=== PATIENT | female | born 1965 | race Caucasian/White ===

== ENCOUNTER 2021-12-17 08:19 | Outpatient (RCR) | payer OTHER, SELFPAY ==
--- NOTE | 2021-12-10 08:30 | CRLHL7_ITS ---
For Patients: As a result of the Century Cures Act, medical imaging exams and procedure reports are released immediately into your electronic medical record. You may view this report before your referring provider. If you have questions, please contact your health care provider. [facility] MYOCARDIAL PERFUSION SCAN CLINICAL HISTORY: 56-year-old female. Chest pain. Hypertension. 5 feet 4 inches, 256 pounds. TECHNIQUE: (Resting SPECT and Stress Gated SPECT with wall motion and ejection fraction) Stress: Pharmacologic ??? Lexiscan (0.4 mg) (IV) Dose (Stress/Rest): 40.7 mCi/39.7 mCi Tc-99m Sestamibi (IV) Comparison: None FINDINGS: There is good uptake of activity by the left ventricle. No left ventricular enlargement is noted. There is soft tissue attenuation. No other significant fixed or reversible defects are identified. The gated images demonstrate a normal left ventricular ejection fraction of approximately 65 percent. No regional wall motion abnormalities are identified. IMPRESSION: 1. There is no evidence of significant myocardial ischemia or infarction. 2. Normal left ventricular ejection fraction of approximately 65 percent. Amilcar Blank M.D. Diagnostic/Nuclear Medicine Radiologist [email or web address] Transcribed: 12:22 pm DW/Dictated by: Amilcar Blank MD @ 12/17/2021 11:15:00 AM DW/Dictated by: Amilcar Blank MD @ 12/17/2021 11:15:00 AM (Electronically Signed)
[2021-12-17] MEDS: SODIUM CHLORIDE 0.9 % (FLUSH) 10 ML SYRINGE IVF (09:22)
[2021-12-17] MEDS: REGADENOSON 0.4 MG/5 ML SYRINGE IVP (09:22)
--- NOTE | 2021-12-17 10:22 | PM.ST ---
Stress Test Note Date Date Seen: 12/17/21 Date of test: 12/17/21 Providers Referring provider: Francie Sharpe Primary care provider: Francie Sharpe Stress test physician: Jaxon Reyes Stress Test Note Stress test ordered: Lexiscan Indication for test: Chest pain Stress test medicine: Lexiscan Results discussion: Patient is a very nice 56-year-old female who presents for the above test after reviewing the cardiac stress test medical history form. She would like to proceed after the risks benefits and side effects are explained to her. Pretest EKG shows normal sinus rhythm with a ventricular rate of 65, there is some mild ST wave flattening noted laterally and inferiorly. And a Q-wave noted in lead 3. Blood pressure is 142/82. Standard Lexiscan protocol done sitting with infusion over 5 minutes. Maximum heart rate was 100 beats per minute, her maximum blood pressure was 154/91. She had some very slight nausea but otherwise was asymptomatic. There is no dysrhythmias noted. She had no EKG changes on the tracing. Impression: Negative subjective Lexiscan, electrographic bili negative Follow up suggested: Await nuclear imaging report, this will be jointly read by nuclear Medicine and Cardiology. Clinical correlation with this will be needed. Patient was back to baseline on finishing test, left this testing facility in excellent condition
--- NOTE | 2021-12-17 16:31 | PM.ST ---
Stress Test Note Date Date Seen: 12/17/21 Date of test: 12/17/21 Providers Referring provider: Francie Sharpe Primary care provider: Tricia Montiel Stress test physician: Jaxon Reyes Stress Test Note Stress test ordered: Stress Echo Indication for test: chest pain Stress test medicine: Definity Results discussion: Patient is a erinn 72-year-old female presents for the above test after discussion the risks benefits and side effects and reviewing of the cardiac stress test medical history form she would like to proceed pretest EKG shows normal sinus rhythm with a ventricular rate of 60. A blood pressure 124 and 75. Standard Franco protocol is employed over a time course of 7 minutes 2 seconds and achieved a metabolic equivalent of 8.5 Mets maximum heart rate was 129. Test is terminated because of fulfillment of protocol. He had some mild fatigue but no chest pain or shortness of breath. There is no specific ST wave changes suggestive of ischemia there is no dysrhythmias noted. He recovered normally in the recovery. Impression: Negative electrographic portion of stress echo Follow up suggested: Follow-up with primary care physician cardiology will review the images, clinical correlation with these will be needed patient left this testing facility in excellent condition
== END 2022-04-02 23:59 | disposition home or self-care (01) ==
LOC: STRESS 08:19
PROVIDERS: PCP Family Medicine; Visit Provider Family Medicine
DX: I95.9 Hypotension, unspecified (principal)
CPT/HCPCS: 78452; 93016; 93017; A9500; J2785

== ENCOUNTER 2021-12-18 07:57 | Outpatient (CLI) | payer OTHER, SELFPAY ==
[2021-12-23 17:56] LABS: Hours Collected 24 hr; Total Volume 2050 mL; Urine Supersaturation Interp Normal; pH, Urine 6.09 (5.00-7.50)
--- OUTSIDE RECORDS SUMMARY | 2022-01-07 18:23 | XMS_ITS | Encounter Summary ---
:1965 Author Organization [facility] Address [address] [place] [address] Care Team Providers Name Role Phone Unavailable Primary Care Provider Unavailable Encounter Details Date Type Department Care Team Description 01/08/2021 Clinical Communication Division of Nephrology Abhinav Tian, and Hypertension in Harry Cardoso, [place], [place] Ph.D. [address] [facility] [address] [place] [phone] 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 Tobacco Use Types Packs/Day Years Used Date Smoking Tobacco: Never Assessed Sex Assigned at Date Recorded Not on file documented as of this encounter Miscellaneous Notes Telephone Encounter - Janae Zuniga M.D., Ph.D. - 01/08/2021 1:25 PM CDT I have reviewed 24 hr urine collection done at [facility]. Her oxalate level in urine is high. I have recommended her to follow a low oxalate diet. I will send a booklet with this information to her home. All questions answered Reena Tian M.D., Ph.D. documented in this encounter Plan of Treatment Not on filedocumented as of this encounter Visit Diagnoses Not on filedocumented in this encounter
--- OUTSIDE RECORDS SUMMARY | 2022-01-07 18:23 | XMS_ITS | Encounter Summary ---
:1965 Author Organization [facility] Address [address] [place] [address] Care Team Providers Name Role Phone Unavailable Primary Care Provider Unavailable Reason for Visit Reason Onset Date Comments Testing For Upper Respiratory Virus Symptoms 06/28/2021 Encounter Details Date Type Department Care Team Description 06/28/2021 External Outreach Department of [facility] Daria Bowens Contact With And (Suspected) Exposure To COVID-19; Medicine, [place] [facility] Infection [facility], in [address] [address] [place], [place] [phone] (Work) [phone] 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 Tobacco Use Types Packs/Day Years Used Date Smoking Tobacco: Never Assessed Sex Assigned at Date Recorded Not on file documented as of this encounter Progress Notes Neena Huerta RNahed. - 06/28/2021 10:05 AM CST Encounter created for symptomatic infectious disease screening with possible COVID, Influenza, RSV, and/or Group A Strep testing. NESS SOLUTIONS CONSULTANT documented in this encounter Plan of Treatment Not on filedocumented as of this encounter Procedures Procedure Name Priority Date/Time Associated Diagnosis Comme nts INFLUENZA A/B AND Routine 06/28/2021 10:52 AM Infection Upper Results for this RSV, PCR, VARIES BUSINESS SOLUTIONS CONSULTANT Respiratory procedure a re in the results section. SARS CORONAVIRUS-2 Routine 06/28/2021 10:52 AM Contact With An d Results for this RNA, V BUSINESS SOLUTIONS CONSULTANT (Suspected) Exposure procedu re are in To COVID-19 the results section. documented in this encounter Results Influenza A/B and RSV, PCR, Varies (06/28/2021 10:52 AM BUSINESS SOLUTIONS CONSULTANT) [facility] Method Time Signature Influenza A/B Swab, 06/29/2021 DTL and RSV, Nasopharynx 6:24 AM BUSINESS SOLUTIONS CONSULTANT Source Influenza A, Undetected Undetected 06/29/2021 DTL PCR 6:24 AM BUSINESS SOLUTIONS CONSULTANT Comment: Influenza A RNA absent. Influenza B, PCR Undetected Undetected 06/29/2021 6:24 AM CS T DTL Comment: Influenza B RNA absent. Respiratory Syncytial Virus, PCR Undetected Undetected 6:24 AM BUSINESS SOLUTIONS CONSULTANT DTL Comment: RSV RNA absent. ----ADDITIONAL INFORMATION---- This test has been modified from the scio ifrahr's instructions. Its performance characteristics were determi soy by [facility] in a manner consistent with CLIA requirements. This test has not been cleared or approved by the U.S. Food and Drug Administration . Specimen Anatomical Collection Method Collection Time Receive d Time (Source) Location / / Volume Laterality Varies 06/28/2021 10:52 06/28/2021 (Nasopharynx) AM BUSINESS SOLUTIONS CONSULTANT 10:18 PM BUSINESS SOLUTIONS CONSULTANT Jayden Bowens P.A.-C. LAB MICROBIOLOGY - GENERAL O RDERABLES Performing Organization Address City/State/ZIP Code Phon e Number [facility] - [address] [place] [address] 559 [address] [facility] [place] [address] Laboratories-[facility] [address] [facility] SARS Coronavirus-2 RNA, V Symptomatic (06/28/2021 10:52 AM BUSINESS SOLUTIONS CONSULTANT) [facility] Method Time Signature SARS-CoV-2 Swab, 06/28/2021 ECLR Specimen Nasopharynx 7:33 PM BUSINESS SOLUTIONS CONSULTANT Source SARS CoV-2 Undetected Undetected 06/28/2021 ECLR RNA, TMA 7:33 PM BUSINESS SOLUTIONS CONSULTANT Comment: SARS-CoV-2 RNA absent. This result does not rule out COVID-19 in the patient, as the sensitivity of the test depends o n the timing of the specimen collection and the quality of the specim en. Result should be correlated with patient's history and clinical presentat ion. ----ADDITIONAL INFORMATION---- This molecular amplification test was pe rformed using the Aptima SARS-CoV-2 assay ([employer] on the [employer] tem under emergency use authorization (EUA) by the U.S. Food and Drug Administ kayode. Fact sheets for this EUA assay can be fo und at the following links: For Healthcare Providers: https://www.Ameristream a.gov/media/180495/download For Patients: https://www.fda.gov/media/ 473625/download Specimen Anatomical Collection Method Collection Time Receive d Time (Source) Location / / Volume Laterality Varies 06/28/2021 10:52 06/28/2021 3:01 (Nasopharynx) AM BUSINESS SOLUTIONS CONSULTANT PM BUSINESS SOLUTIONS CONSULTANT Jayden Bowens P.A.-C. LAB MICROBIOLOGY - GENERAL O RDERABLES Performing Organization Address City/State/ZIP Code Phon e Number [facility]- [address] [place] [address] [place] [address] [place] [address] System [address] documented in this encounter Visit Diagnoses Diagnosis Contact With And (Suspected) Exposure To COVID-19 Infection Upper Respiratory documented in this encounter Additional Health Concerns Infection Onset Date Last Indicated Resolved Time COVID19 Pending 06/28/2021 06/28/2021 06/28/2021 7:34 PM BUSINESS SOLUTIONS CONSULTANT documented as of this encounter
--- OUTSIDE RECORDS SUMMARY | 2022-01-07 18:23 | XMS_ITS | Clinical Summary ---
:1965 Author Organization [facility] Address [address] [place] [address] Care Team Providers Name Role Phone Unavailable Primary Care Provider Unavailable Source Comments Patient records contain information from all sites at [facility]. For routine questions regarding patient records, call [phone] during business hours, M-F 8:00 AM - 5:00 PM Central Time. 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 Dx) 11/29/2021 Clinical Nephrology and Abhinav Imaging Communication Hypertension Janae Tian M.D., Ph.D. from Last 3 Months 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 Tobacco Use Types Packs/Day Years Used Date Smoking Tobacco: Never Assessed Sex Assigned at Date Recorded Not on file Last Filed Vital Signs Vital Sign Reading Time Taken Comments Blood Pressure 134/93 12/30/2013 12:11 Vital sign r esult PM CDT from Clinical No hemant. Pulse 72 12/30/2013 12:11 Vital sign r esult PM CDT from Clinical No hemant. Temperature - - Respiratory Rate 16 12/30/2013 12:11 Vital sign result PM CDT from Clinical No hemant. Oxygen Saturation - - Inhaled Oxygen - - Concentration Weight 138 kg (304 lb 15.8 12/30/2013 12:11 Vital si gn result oz) PM CDT from Clinical No hemant. Height 162.5 cm (5' 3.98) 12/30/2013 12:11 Vital si gn result PM CDT from Clinical No hemant. Body Mass Index 52.39 12/30/2013 12:11 PM CDT Plan of Treatment Health Maintenance Due Date Last Done Comments CT Colonography 1965 Cervical Cancer Screening 1965 Cologuard 1965 Colonoscopy 1965 Colorectal Cancer Screening 1965 FIT 1965 Fasting Lipid Panel 1965 HIV Screening 1965 Hepatitis B Vaccines (1 of 1967 3 - 3-dose series) Hepatitis C Screening 1965 Mammogram 1965 Depression Screening 06/01/2021 (Annual PHQ-2) Influenza Vaccine (#1) 2022 03/08/2021, 03/12/2020, 02/17/2019, Additional history exists Fasting Glucose for 07/29/2022 07/29/2019, 01/26/2019 Diabetes Screening DTaP,Tdap,and Td Vaccines 04/11/2025 04/11/2015 (2 - Td or Tdap) Pneumococcal vaccine (0-64 Aged Out 06/17/2017 No lo nger eligible years) based on patient 's age to complete this topic COVID-19 Vaccine Completed 11/12/2021, 05/03/2021, 09/08/2020, Additional history exists Zoster Vaccines Completed 11/22/2021, 05/17/2021 Insurance Payer Benefit Plan / Subscriber ID Effective Dates Phone Addre ss Type Group MEDICA MEDICA [id number] 2021-Present [phone] [address] [address] [place] [address]
--- OUTSIDE RECORDS SUMMARY | 2022-01-07 18:23 | XMS_ITS | Encounter Summary ---
:1965 Author Organization [facility] Address [address] [place] [address] Care Team Providers Name Role Phone Unavailable Primary Care Provider Unavailable Encounter Details Date Type Department Care Team Description 04/11/2021 Orders Only RST PCP [facility] Susana Hidalgo M.D. [address] [place], [place] [phone] (Wo rk) 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 Tobacco Use Types Packs/Day Years Used Date Smoking Tobacco: Never Assessed Sex Assigned at Date Recorded Not on file documented as of this encounter Plan of Treatment Not on filedocumented as of this encounter Visit Diagnoses Not on filedocumented in this encounter
--- OUTSIDE RECORDS SUMMARY | 2022-01-07 18:23 | XMS_ITS | Encounter Summary ---
:1965 Author Organization [facility] Address [address] [place] [address] Care Team Providers Name Role Phone Unavailable Primary Care Provider Unavailable Reason for Visit Reason Comments Imaging Encounter Details Date Type Department Care Team Description 11/29/2021 Clinical Communication Division of Nephrology Abhinav Tian, Imaging and Hypertension in Harry Cardoso, [place], [place] Ph.D. [address] [facility] [address] [place] [phone] 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 Tobacco Use Types Packs/Day Years Used Date Smoking Tobacco: Never Assessed Sex Assigned at Date Recorded Not on file documented as of this encounter Miscellaneous Notes Telephone Encounter - Mya Arzate - 11/29/2021 2:[address] Janae Tian, I received a fax of a CT/Abdomen that was completed on 11/22/21. This report has been uploaded into the patient's chart under the document viewer tab for review. Thank you, Mya Arzate documented in this encounter Plan of Treatment Not on filedocumented as of this encounter Visit Diagnoses Not on filedocumented in this encounter
--- OUTSIDE RECORDS SUMMARY | 2022-01-07 18:23 | XMS_ITS | Encounter Summary ---
:1965 Author Organization [facility] Address [address] [place] [address] Care Team Providers Name Role Phone Unavailable Primary Care Provider Unavailable Reason for Visit Appointment Request (Routine) - Closed Specialty Diagnoses / Procedures Referred By Contact Refer red To Contact Nephrology and Francie Sharpe, Hypertension [address] [place] [address] Referral ID Status Reason Start Date Expiration Date Visits Requ ested Visits Authorized [id number] Closed 11/08/2020 11/08/2021 1 1 Encounter Details Date Type Department Care Team Description 11/27/2020 External Outreach Division of Luisa Zuniga Thoracic Nephrology and Harry Cardoso, Aortic (HCC) Hypertension in Ph.D. [place], [place] [address] [place] [address] [place] [phone] 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 Tobacco Use Types Packs/Day Years Used Date Smoking Tobacco: Never Assessed Sex Assigned at Date Recorded Not on file documented as of this encounter Consult Notes Janae Zuniga M.D., Ph.D. - 11/27/2020 1:00 PM CDT No show documented in this encounter Plan of Treatment Not on filedocumented as of this encounter Visit Diagnoses Diagnosis Ectasia Thoracic Aortic (HCC) documented in this encounter
--- OUTSIDE RECORDS SUMMARY | 2022-01-07 18:23 | XMS_ITS | Encounter Summary ---
:1965 Author Organization [facility] Address [address] [place] [address] Care Team Providers Name Role Phone Unavailable Primary Care Provider Unavailable Reason for Visit Appointment Request (Routine) - Closed Specialty Diagnoses / Procedures Referred By Contact Refer red To Contact Nephrology and Francie Sharpe Hypertension M.D. [address] [place] [address] Referral ID Status Reason Start Date Expiration Date Visits Requ ested Visits Authorized [id number] Closed 11/28/2020 11/28/2021 1 1 Encounter Details Date Type Department Care Team Description 12/11/2020 External Outreach Division of Abhinav Tian, [facility] and Harry Cardoso, Ureteral Hypertension in Ph.D. [place], [place] [address] [facility] [address] [place] [phone] 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 Tobacco Use Types Packs/Day Years Used Date Smoking Tobacco: Never Assessed Sex Assigned at Date Recorded Not on file documented as of this encounter Consult Notes Janae Zuniga M.D., Ph.D. - 12/11/2020 4:00 PM CDT Please see scanned in note under document viewer tab for the [facility] outreach visit from this date. documented in this encounter Plan of Treatment Not on filedocumented as of this encounter Visit Diagnoses Diagnosis [facility] documented in this encounter
--- OUTSIDE RECORDS SUMMARY | 2022-01-07 18:23 | XMS_ITS | Encounter Summary ---
:1965 Author Organization [facility] Address [address] [place] [address] Care Team Providers Name Role Phone Unavailable Primary Care Provider Unavailable Encounter Details Date Type Department Care Team Description 06/28/2021 Admin Visit Department [facility] [address] [facility] [address] [place] [phone] (Wo rk) 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 Tobacco Use Types Packs/Day Years Used Date Smoking Tobacco: Never Assessed Sex Assigned at Date Recorded Not on file documented as of this encounter Plan of Treatment Not on filedocumented as of this encounter Visit Diagnoses Not on filedocumented in this encounter Additional Health Concerns Infection Onset Date Last Indicated Resolved Time COVID19 Pending 06/28/2021 06/28/2021 06/28/2021 7:34 PM APPLICATION DEVELOPMENT DIRECTOR documented as of this encounter
--- OUTSIDE RECORDS SUMMARY | 2022-01-07 18:23 | XMS_ITS | Encounter Summary ---
:1965 Author Organization [facility] Address [address] [place] [address] Care Team Providers Name Role Phone Unavailable Primary Care Provider Unavailable Reason for Visit Reason Comments COVNATHEN Nurse Line Encounter Details Date Type Department Care Team Description 06/28/2021 Clinical Communication Division of So Londono Nurse Dian [facility], [facility], in [place], [place] [address] [place] [address] 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 Tobacco Use Types Packs/Day Years Used Date Smoking Tobacco: Never Assessed Sex Assigned at Date Recorded Not on file documented as of this encounter Miscellaneous Notes Telephone Encounter - Hetal Shane - 06/28/2021 1:14 PM PUMP SERVICE SUPERVISOR Scheduled for 06/28 SERVICE SUPERVISOR Telephone Encounter - So Londono - 06/28/2021 9:44 AM CST COVID-19 Nurse Line Screening ASSESSMENT Initial Screening Pathway Select appropriate pathway: : Adult In the last 48 hours, have you had a fever* OR symptoms that are unrelated to a preexisting illness?: New cough, New nausea, New chills, New change or loss of taste sensation, New headache, New muscle aches Date of symptom onset: 06/21/21 COVID Symptomatic Screening Do you have any of the following urgent symptoms?: No urgent symptoms noted (Continue Screening) Have you received a COVID-19 vaccine in the last 72 hours? : No vaccine received (Continue Screening) Have you had close contact* with a person who has tested positive with COVID-19 in the past 14 days?: Yes (Continue Screening) Have you tested positive for COVID-19 in the last 45 days?: No. COVID-19 testing is indicated (Continue Screening for Additional Testing) Additional Screening for Influenza, RSV and Strep Select appropriate region: : [place] Do you have any of the following respiratory syntonical virus (RSV) complications? : No complications noted (Continue Screening) Do you have any of the following high risk influenza criteria?: Body Mass Index (BMI) 40 or greater or unsure*, 1 or more high risk flu complications are noted. (Continue Screening), Chronic pulmonary disease including asthma or COPD Based on your last response, you are considered high risk for Influenza complications and may benefit taking a medication called Tamiflu?? (Oseltamivir). Are you interested in pursuing a prescription for Tamiflu?? (Oseltamivir)?: No, patient doesn't qualify since symptoms started >48h ago (ContinueScreening) Are all of the following Strep criteria met? : No, all criteria are not met. Influenza testing is indicated. (End Screening) Symptom Onset Date of symptom onset: 06/21/21 Testing Recommendation Endpoint Is testing recommended? : Recommended to test Further Triage Needs Any further triage needs? : No further concerns noted. PLAN Endpoint recommendation: Symptomatic testing indicated, advised to be swabbed for COVID-19 and Influenza, sent to [facility] located at [address]. An appointment is required fortesting, please call [phone] Thursday-Thursday 7am to 6pm and Thursday & Thursday 9am to 4pm to schedule an appointment. Testing hours are 8am - 4:30pm daily. You can also schedule via your Patient Online Services account., Please avoid using public transportation per CDC recommendation. If you do not have personal transportation please self- quarantine until a personal transportation option is available. Standard Care Points -Get a COVID -19 vaccine as soon as you can if not fully vaccinated. -Wash hands frequently with soap and water, use hand cushion former if soap and water aren't available. -Wear a mask over your nose and mouth to help protect yourself and others if not fully vaccinated and having no symptoms -Stay 6 feet between yourself and others who don't live with you. -Avoid crowds and poorly ventilated indoor spaces. -Seek emergent care if any of the following occur Trouble breathing Bluish lips or face Persistent pain or pressure in the chest New confusion or inability to rouse. -Notify your regular care provider of any new or worsening symptoms. Symptomatic Carepoints: Stay home and separate yourself from others and stay in a specific sick room if able. Wear a mask if you have to be around others. Avoid sharing personal or household items. Rest. Hydrate. Take Acetaminophen/Ibuprofen as needed to control fever and muscles aches. Use over thecounter medications as needed for other symptoms. Education: Patient/caregiver able to teach back Patient agreeable to plan of care: Yes The following references were used: [facility] novel coronavirus (COVID- 19) resources SERVICE SUPERVISOR documented in this encounter Plan of Treatment Not on filedocumented as of this encounter Visit Diagnoses Not on filedocumented in this encounter Additional Health Concerns Infection Onset Date Last Indicated Resolved Time COVID19 Pending 06/28/2021 06/28/2021 06/28/2021 7:34 PM PUMP SERVICE SUPERVISOR documented as of this encounter
--- OUTSIDE RECORDS SUMMARY | 2022-01-07 18:23 | XMS_ITS | Continuity of Care Document ---
:1965 Author Organization [facility] Address [address] [address] [place] [address] Phone Care Team Providers Name Role Phone Surinder Maher MD Unavailable Unavailable Procedures Procedure Date Init Inpt Cons New/est Mod-hi Ugi Endo; Dx W/wo Collec Specm Advance Directives Directive Yes / No Effective Date File Name No Information Encounters Encounter Practice Location Reason(s) Diagnoses Date Provider Provide rs Description For Visit Copied on Encounter [facility] [place] No [facility] Information 8-201 MD Cadena. [facility], [place] [address] [facility] [address], [facility], [facility] , [place], [address], [id number], [place] [facility], [place], tel:[phone] , [place]. tel:[phone] Init Inpt [facility] [place] No [facility] Referring Cons New/est [facility] Information 7-201 MD Cadena . Provider: [facility], [facility] [address] [facility] [place], [address], [address] [facility] [address], , [place], [address], [place], [id number], [place], [address]. [facility], [place], tel:[phone] tel:[phone] , [place]. tel:[phone] Family History Family Member Type Diagnosis Age At Onset No Information Payers Payer name Insurance type Covered green party ID Authorization(s ) [employer] CI [id number] 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 Type Description Quantity Date Captured Comments Sex Female Smoking Status No Information Chief Complaint And Reason For Visit No Information Reason For Referral Reason For Referral No Information Plan Of Treatment Date Type Action Status No Information History Of Present Illness Encounter Date Complaint History Of Present I llness No Information Functional Status Date Functional Assessment No Information Instructions Date Instruction Additional Informati on No Information Assessments Type Assessment Date No Information Patient Care Teams Name Effective Dates (start - stop) Status M crisat No Information
--- OUTSIDE RECORDS SUMMARY | 2022-01-07 18:23 | XMS_ITS | Encounter Summary ---
:1965 Author Organization [facility] Address [address] [place] [address] Care Team Providers Name Role Phone Unavailable Primary Care Provider Unavailable Encounter Details Date Type Department Care Team Description 01/17/2016 Hospital Encounter HX [facility] Tamar Elizondo M.D. [address] [place], [place] [phone] (Wo rk) 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 Tobacco Use Types Packs/Day Years Used Date Smoking Tobacco: Never Assessed Sex Assigned at Date Recorded Not on file documented as of this encounter Nursing Notes Gayle Bassett R.N. - 01/11/2016 8:[address] angio chest Patient will have CT scan with contrast, with 3D recontruction per orders of Dr. Segal on 12-30-13. Ivy would like Dr. Segal to review the CT scan and then schedule a follow-up appt if needed. CT isscheduled for 01-16. Will have Dr. Segal review scan on 01-30 when he is here, or sooner if needed. Patient agrees with plan. Electronically Signed By: GAYLE BASSETT RN On: 01/11/2016 09:02 AM Modified by and Electronically Signed by: GAYLE BASSETT RN On: 01/11/2016 09:02 AM Source: [facility] Document Id: [id number] documented in this encounter Miscellaneous Notes Miscellaneous - Gayle Bassett R.N. 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 See letter of Dr. Segal in synthesis dated 01-22-16. Source: [facility] Document Id: [id number] Miscellaneous - Gayle Bassett R.N. - 01/18/2016 1:31 PM CDT *General Message From: GAYLE BASSETT RN To: GAYLE BASSETT RN; Sent: 01/18/2016 13:31:46 CDT Subject: *General Message Hi Dr. Segal Ivy Dale had her CT scan done yesterday. The results are available for you to review. Thanks - Pearl Source: [facility] Document Id: [id number] Miscellaneous - Conversion, Historical Provider Ser - 01/17/2016 11:59 PM CDT Coding Summary-Paper Based CODING DATE: 01/25/2016 FINAL [facility] STATUS: * Discharged to Home or Self Care PAYOR: Commercial Insurance ADMIT DX: REASON FOR VISIT DX: FINAL DX: PRINCIPAL: N28.1 Cyst of kidney, acquired SECONDARY: J98.11 Atelectasis Z98.84 Bariatric surgery status PROCEDURES DOCTOR NAME DATE NOTE: The code number assigned matches the documented diagnosis and / or procedure in the patient's chart. However, the narrative phrase printed from the coding software may appear abbreviated, or result in slightly different terminology. Coded By: JESSICA SHARP Date Saved: 01/25/2016 07:59 am [facility] Document Id: [id number] documented in this encounter Plan of Treatment Not on filedocumented as of this encounter Visit Diagnoses Not on filedocumented in this encounter
--- OUTSIDE RECORDS SUMMARY | 2022-01-07 18:23 | XMS_ITS | Encounter Summary ---
:1965 Author Organization [facility] Address [address] [place] [address] Care Team Providers Name Role Phone Unavailable Primary Care Provider Unavailable Reason for Visit Reason Comments COVID Inquiry Encounter Details Date Type Department Care Team Description 06/28/2021 Clinical Communication Department of Family [facility], [place], Pcp COVID Inquiry Medicine, [facility], in [place], [place] [address] [address] 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 Tobacco Use Types Packs/Day Years Used Date Smoking Tobacco: Never Assessed Sex Assigned at Date Recorded Not on file documented as of this encounter Miscellaneous Notes Telephone Encounter - Selene Deal - 06/28/2021 9:42 AM CST What is the purpose of the call?: Requesting Testing Only Request Testing In the past 48 hours, have you had any of the following symptoms new to you and not related to an existing health condition?: New sore throat, New nausea, New diarrhea, New chills, New myalgias (muscleaches), New headache, New change or loss of taste sensation Because of symptoms, transfer patient to: : [facility] COVID Nurse Line (End Screening) Symptom Onset Date of symptom onset: 06/21/21 Plan: Endpoint recommendation: Transferred to Nursing/COVID Line/Care Team *Reminder if sending patient for testing in [facility] or [facility], route encounter to the correct testing pool. 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
--- OUTSIDE RECORDS SUMMARY | 2022-01-07 18:23 | XMS_ITS | Encounter Summary ---
:1965 Author Organization [facility] Address [address] [place] [address] Care Team Providers Name Role Phone Unavailable Primary Care Provider Unavailable Encounter Details Date Type Department Care Team Description 07/28/2008 Hospital Encounter [facility] IN[facility] Maritza Deal M.D. 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 Tobacco Use Types Packs/Day Years Used Date Smoking Tobacco: Never Assessed Sex Assigned at Date Recorded Not on file documented as of this encounter Plan of Treatment Not on filedocumented as of this encounter Visit Diagnoses Not on filedocumented in this encounter
== END 2021-12-18 07:58 | disposition home or self-care (01) ==
LOC: NFLDREF 07:58
PROVIDERS: PCP Family Medicine; Visit Provider Internal Medicine Nephrology
DX: R07.89 Other chest pain (principal); N20.0 Calculus of kidney; I95.9 Hypotension, unspecified; M79.606 Pain in leg, unspecified; R25.2 Cramp and spasm
CPT/HCPCS: 82340; 82436; 82507; 83735; 83945; 83986; 84105; 84133; 84300; 84392; 84560

== ENCOUNTER 2022-03-28 08:38 | Outpatient (CLI) | payer OTHER, SELFPAY ==
--- OUTSIDE RECORDS SUMMARY | 2022-03-28 08:56 | XMS_ITS | Encounter Summary ---
:1965 Author Organization [facility] Address [address] [place] [address] Care Team Providers Name Role Phone Unavailable Primary Care Provider Unavailable Reason for Visit Reason Comments COVNATHEN Nurse Line Encounter Details Date Type Department Care Team Description 06/28/2021 Clinical Communication Division of So Londono Nurse Dian [facility], [facility], in [place], [place] [address] [place] [address] 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 Tobacco Use Types Packs/Day Years Used Date Smoking Tobacco: Never Assessed Sex Assigned at Date Recorded Not on file documented as of this encounter Miscellaneous Notes Telephone Encounter - Hetal Shane - 06/28/2021 1:14 PM 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
--- OUTSIDE RECORDS SUMMARY | 2022-03-28 08:56 | XMS_ITS | Encounter Summary ---
:1965 Author Organization [facility] Address [address] [place] [address] Care Team Providers Name Role Phone Unavailable Primary Care Provider Unavailable Reason for Visit Reason Onset Date Comments Testing For Upper Respiratory Virus Symptoms 06/28/2021 Encounter Details Date Type Department Care Team Description 06/28/2021 External Outreach Department of [facility] Daria Bowens Contact With And (Suspected) Exposure To COVID-19; Medicine, [facility], in [address] [address] [place], [place] [phone] [address] (Work) [phone] 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 Tobacco Use Types Packs/Day Years Used Date Smoking Tobacco: Never Assessed Sex Assigned at Date Recorded Not on file documented as of this encounter Progress Notes Neena Huerta RNahed. - 06/28/2021 10:05 AM CST Encounter created for symptomatic infectious disease screening with possible COVID, Influenza, RSV, and/or Group A Strep testing. MAKER documented in this encounter Plan of Treatment Not on filedocumented as of this encounter Procedures Procedure Name Priority Date/Time Associated Diagnosis Comme nts INFLUENZA A/B AND Routine 06/28/2021 10:52 AM Infection Upper Results for this RSV, PCR, VARIES BAND MAKER Respiratory procedure a re in the results section. SARS CORONAVIRUS-2 Routine 06/28/2021 10:52 AM Contact With An d Results for this RNA, V BAND MAKER (Suspected) Exposure procedu re are in To COVID-19 the results section. documented in this encounter Results Influenza A/B and RSV, PCR, Varies (06/28/2021 10:52 AM BAND MAKER) [facility] Method Time Signature Influenza A/B Swab, 06/29/2021 DTL and RSV, Nasopharynx 6:24 AM BAND MAKER Source Influenza A, Undetected Undetected 06/29/2021 DTL PCR 6:24 AM BAND MAKER Comment: Influenza A RNA absent. Influenza B, PCR Undetected Undetected 06/29/2021 6:24 AM CS T DTL Comment: Influenza B RNA absent. Respiratory Syncytial Virus, PCR Undetected Undetected 6:24 AM BAND MAKER DTL Comment: RSV RNA absent. ----ADDITIONAL INFORMATION---- This test has been modified from the zaleski ifrahr's instructions. Its performance characteristics were determi soy by [facility] in a manner consistent with CLIA requirements. This test has not been cleared or approved by the U.S. Food and Drug Administration . Specimen Anatomical Collection Method Collection Time Receive d Time (Source) Location / / Volume Laterality Varies 06/28/2021 10:52 06/28/2021 (Nasopharynx) AM BAND MAKER 10:18 PM BAND MAKER Jayden Bowens P.A.-C. LAB MICROBIOLOGY - GENERAL O RDERABLES Performing Organization Address City/State/ZIP Code Phon e Number [facility] - [address] [place] [address] [address] [facility] [place] [address] Laboratories-[facility] [address] [facility] SARS Coronavirus-2 RNA, V Symptomatic (06/28/2021 10:52 AM BAND MAKER) [facility] Method Time Signature SARS-CoV-2 Swab, 06/28/2021 ECLR Specimen Nasopharynx 7:33 PM BAND MAKER Source SARS CoV-2 Undetected Undetected 06/28/2021 ECLR RNA, TMA 7:33 PM BAND MAKER Comment: SARS-CoV-2 RNA absent. This result does not rule out COVID-19 in the patient, as the sensitivity of the test depends o n the timing of the specimen collection and the quality of the specim en. Result should be correlated with patient's history and clinical presentat ion. ----ADDITIONAL INFORMATION---- This molecular amplification test was pe rformed using the Aptima SARS-CoV-2 assay ([employer] on the [employer] tem under emergency use authorization (EUA) by the U.S. Food and Drug Administ kayode. Fact sheets for this EUA assay can be fo und at the following links: For Healthcare Providers: https://www.TagArray a.gov/media/477402/download For Patients: https://www.fda.gov/media/ 805031/download Specimen Anatomical Collection Method Collection Time Receive d Time (Source) Location / / Volume Laterality Varies 06/28/2021 10:52 06/28/2021 3:01 (Nasopharynx) AM BAND MAKER PM BAND MAKER Jayden Bowens P.A.-C. LAB MICROBIOLOGY - GENERAL O RDERABLES Performing Organization Address City/State/ZIP Code Phon e Number [facility]- [address] [place] [address] [place] [address] [place] [address] System in [address] documented in this encounter Visit Diagnoses Diagnosis Contact With And (Suspected) Exposure To COVID-19 Infection Upper Respiratory documented in this encounter Additional Health Concerns Infection Onset Date Last Indicated Resolved Time COVID19 Pending 06/28/2021 06/28/2021 06/28/2021 7:34 PM BAND MAKER documented as of this encounter
--- OUTSIDE RECORDS SUMMARY | 2022-03-28 08:56 | XMS_ITS | Encounter Summary ---
:1965 Author Organization [facility] Address [address] [place] [address] Care Team Providers Name Role Phone Unavailable Primary Care Provider Unavailable Encounter Details Date Type Department Care Team Description 01/08/2021 Clinical Communication Division of Nephrology Abhinav Tian, and Hypertension in Harry Cardoso, [place], [place] Ph.D. [address] [facility] [address] [place] [address] [phone] 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 Tobacco Use Types Packs/Day Years Used Date Smoking Tobacco: Never Assessed Sex Assigned at Date Recorded Not on file documented as of this encounter Miscellaneous Notes Telephone Encounter - Janae Zuniga M.D., Ph.D. - 01/08/2021 1:25 PM CDT I have reviewed 24 hr urine collection done at [facility]. Her oxalate level in urine is high. [...]
--- OUTSIDE RECORDS SUMMARY | 2022-03-28 08:56 | XMS_ITS | Encounter Summary ---
:1965 Author Organization [facility] Address [address] [place] [address] Care Team Providers Name Role Phone Unavailable Primary Care Provider Unavailable Reason for Visit Appointment Request (Routine) - Authorized Specialty Diagnoses / Procedures Referred By Contact Refer red To Contact Nephrology and Hypertension Referral ID Status Reason Start Date Expiration Date Visits V isits Requested Authorized [id number] Authorized 12/06/2021 12/06/2022 1 Encounter Details Date Type Department Care Team Description 12/24/2021 External Outreach Division of Abhinav Tian, [facility] and Harry Cardoso, Ureteral (Jocelyn mark Hypertension in Ph.D. Dx) [place], [place] [address] [facility] [address] [place] [phone] 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 Tobacco Use Types Packs/Day Years Used Date Smoking Tobacco: Never Assessed Sex Assigned at Date Recorded Not on file documented as of this encounter Progress Notes Janae Zuniga M.D., Ph.D. - 12/24/2021 4:30 PM CDT Cancelled appointment at [facility] documented in this encounter Plan of Treatment Not on filedocumented as of this encounter Visit Diagnoses Diagnosis [facility] - Primary documented in this encounter
--- OUTSIDE RECORDS SUMMARY | 2022-03-28 08:56 | XMS_ITS | Clinical Summary ---
:1965 Author Organization [facility] Address [address] [place] [address] Care Team Providers Name Role Phone Unavailable Primary Care Provider Unavailable Source Comments Patient records contain information from all sites at [facility]. For routine questions regarding patient records, call [phone] during business hours, M-F 8:00 AM - 5:00 PM Central Time. Record requests for emergency care only can be directed to [phone] at any time.[facility] Active Problems Problem Noted Date Ectasia Thoracic Aortic 01/01/2016 Overview: Ectasia Thoracic Aortic 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 Tobacco Use Types Packs/Day Years [...] 1965 Colorectal Cancer Screening 1965 FIT 1965 HIV Screening 1965 Hepatitis B Vaccines (1 of 1967 3 - 3-dose series) Hepatitis C Screening 1965 Lipid (Cholesterol) 1965 Screening Mammogram 1965 Depression Screening 06/01/2021 (Annual PHQ-2) COVID-19 Vaccine (5 - 01/07/2022 11/12/2021, 05/03/2021, Booster for Pfizer series) 09/08/2020, Additiona l history exists Influenza Vaccine (#1) 2022 03/08/2021, 03/12/2020, 02/17/2019, Additional history exists Fasting Glucose for 07/29/2022 07/29/2019, 01/26/2019 Diabetes Screening DTaP,Tdap,and Td Vaccines 04/11/2025 04/11/2015 (2 - Td or Tdap) Pneumococcal vaccine (0-64 Aged Out 06/17/2017 No lo nger eligible years) based on patient 's age to complete this topic Zoster Vaccines Completed 11/22/2021, 05/17/2021 Insurance Payer Benefit Plan / Subscriber ID Effective Dates Phone Addre ss Type Group MEDICA MEDICA [id number] 2021-Present [phone] [address] [address] [place] [address]
--- OUTSIDE RECORDS SUMMARY | 2022-03-28 08:56 | XMS_ITS | Encounter Summary ---
:1965 Author Organization [facility] Address [address] [place] [address] Care Team Providers Name Role Phone Unavailable Primary Care Provider Unavailable Reason for Visit Reason Comments Imaging Encounter Details Date Type Department Care Team Description 11/29/2021 Clinical Communication Division of Nephrology Abhinav Tian, Imaging and Hypertension in Harry Cardoso, [place], [place] Ph.D. [address] [facility] [address] [place] [phone] 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 Tobacco Use Types Packs/Day Years [...]
--- OUTSIDE RECORDS SUMMARY | 2022-03-28 08:56 | XMS_ITS | Encounter Summary ---
:1965 Author Organization [facility] Address [address] [place] [address] Care Team Providers Name Role Phone Unavailable Primary Care Provider Unavailable Encounter Details Date Type Department Care Team Description 06/28/2021 Admin Visit Department of Family [facility] [address] [facility] [address] [place] [phone] (Wo rk) 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 Tobacco Use Types Packs/Day Years Used Date Smoking Tobacco: Never Assessed Sex Assigned at Date Recorded Not on file documented as of this encounter Plan of Treatment Not on filedocumented as of this encounter Visit Diagnoses Not on filedocumented in this encounter Additional Health Concerns Infection Onset Date Last Indicated Resolved Time COVID19 Pending 06/28/2021 06/28/2021 06/28/2021 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
--- OUTSIDE RECORDS SUMMARY | 2022-03-28 08:56 | XMS_ITS | Encounter Summary ---
:1965 Author Organization [facility] Address [address] [place] [address] Care Team Providers Name Role Phone Unavailable Primary Care Provider Unavailable Reason for Visit Reason Comments COVID Inquiry Encounter Details Date Type Department Care Team Description 06/28/2021 Clinical Communication Department of Family [facility], Pcp COVID Inquiry Medicine, [facility], in [place], [place] [address] [address] 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 Tobacco Use Types [...] Because of symptoms, transfer patient to: : Reading COVID Nurse Line (End Screening) Symptom Onset Date of symptom onset: 06/21/21 Plan: Endpoint recommendation: Transferred to Nursing/COVID Line/Care Team *Reminder if sending patient for testing in [facility] or [facility], route encounter to the correct testing pool. 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
--- OUTSIDE RECORDS SUMMARY | 2022-03-28 08:56 | XMS_ITS | Encounter Summary ---
:1965 Author Organization [facility] Address [address] [place] [address] Care Team Providers Name Role Phone Unavailable Primary Care Provider Unavailable Encounter Details Date Type Department Care Team Description 04/11/2021 Orders Only [facility] PCP [facility] Susana Hidalgo M.D. [address] [place], [place] [phone] (Wo rk) 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 Tobacco Use Types Packs/Day Years Used Date Smoking Tobacco: Never Assessed Sex Assigned at Date Recorded Not on file documented as of this encounter Plan of Treatment Not on filedocumented as of this encounter Visit Diagnoses Not on filedocumented in this encounter
--- OUTSIDE RECORDS SUMMARY | 2022-03-28 08:57 | XMS_ITS | Encounter Summary ---
:1965 Author Organization [facility] Address [address] [place] [address] Care Team Providers Name Role Phone Unavailable Primary Care Provider Unavailable Encounter Details Date Type Department Care Team Description 01/17/2016 Hospital Encounter [facility]X [facility] Tamar Elizondo M.D. [address] [place], [place] [phone] (Wo rk) 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 [...] BASSETT RN On: 01/11/2016 09:02 AM Source: [facility] POWERCHART Document Id: [id number] documented in this encounter Miscellaneous Notes Miscellaneous - Gayle Bassett R.N. - 01/28/2016 9:36 AM CDT Reminder Msg From: GAYLE BASSETT RN ([place] Cardiology Nurse) To: [place] Cardiology Nurse; Sent: 01/28/2016 09:36:59 CDT Show up: 01/27/2021 09:36:00 CDT Subject: Reminder Msg Please Remember to: PATIENT: ( ) Call Patient ( ) Ask Patient to ( ) ( ) Call Relative ( ) Schedule Patient ( ) ( ) Call for Digital Product Specialist ( ) Follow up on Results ( ) Other: PROVIDER: ( ) Call Physician ( ) Call Pharmacist ( ) Call Lab ( ) Other: Special Instructions: Comments: follow-up CTA chest w or wo 3D - possible thoracic aortic estasia in 5-10 years. See letter of Dr. Segal in synthesis dated 01-22-16. Source: [employer] Document Id: [id number] Miscellaneous - Gayle Bassett R.N. - 01/18/2016 1:31 PM CDT *General Message From: GAYLE BASSETT RN To: GAYLE BASSETT RN; Sent: 01/18/2016 13:31:46 CDT Subject: *General Message Hi Dr. Segal Ivy Dale had her CT scan done yesterday. The results are available for you to review. Thanks - Pearl Source: [employer] Document Id: [id number] Miscellaneous - Conversion, Historical Provider Ser - 01/17/2016 11:59 PM CDT Coding Summary-Paper Based CODING DATE: 01/25/2016 FINAL [facility] STATUS: * Discharged to Home [...] SHARP Date Saved: 01/25/2016 07:59 am Source: [facility] Document Id: [id number] documented in this encounter Plan of Treatment Not on filedocumented as of this encounter Visit Diagnoses Not on filedocumented in this encounter
--- OUTSIDE RECORDS SUMMARY | 2022-03-28 08:57 | XMS_ITS | Encounter Summary ---
:1965 Author Organization [facility] Address [address] [place] [address] Care Team Providers Name Role Phone Unavailable Primary Care Provider Unavailable Reason for Visit Appointment Request (Routine) - Closed Specialty Diagnoses / Procedures Referred By Contact Refer red To Contact Nephrology and Francie Sharpe Hypertension Harry [address] [place] [address] Referral ID Status Reason Start Date Expiration Date Visits Requ ested Visits Authorized [id number] Closed 11/08/2020 11/08/2021 1 1 Encounter Details Date Type Department Care Team Description 11/27/2020 External Outreach Division of Luisa Zuniga Thoracic Nephrology and Harry Cardoso, Aortic (HCC) Hypertension in Ph.D. [place], [place] [address] [facility] [address] [place] [phone] 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 Tobacco Use Types Packs/Day Years [...]
--- OUTSIDE RECORDS SUMMARY | 2022-03-28 08:57 | XMS_ITS | Clinical Summary ---
:1965 Author Organization [facility] [place] [address] Care Team Providers Name Role Phone Francie Sharpe MD Primary Care Provider [phone] Saige Holder RN Unavailable Romain Doty MD Unavailable [phone] Allergies Active Allergy Reactions Severity Noted Date Comments Codeine Nausea Only Nsaids Other - Describe In 07/22/2018 H/o judi -n-y gastric (Non-Steroidal Comment Field bypass. DYLAN ID NSAIDs Anti-Inflammatory and aspiri n due to risk Drug) of gastric and/ or G-J anastomotic ulc ers. 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 fexofenadine (CONSTANTINE) Take 1 tablet by 0 01/27/2018 Active 180 mg tablet mouth once daily with a meal. albuterol HFA 90 Inhale 1-2 Puffs 0 Active mcg/actuation inhaler by mouth every 4 hours if needed. calcium citrate-vitamin Take 1500mg 90 tablet Active D3, 315 mg-250 units, daily in divided (CITRUS CALCIUM) doses with meals 315-250 mg-unit tab tabletIndications: Bariatric surgery status cyanocobalamin (VITAMIN DISSOLVE 1 30 tablet. 2 01/28/2021 Active B12) 1,000 mcg TABLET UNDER THE sublingual TONGUE EVERY DAY tabletIndications: Bariatric surgery status busPIRone (BUSPAR) 10 20 mg in the 0 11/27/2021 Active mg tablet morning and 20 mg in the evening. PARoxetine (PAXIL) 30 30 mg once 0 11/27/2021 Active mg tablet daily. 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 Doty Morbid obesity with body mass index (BMI) of 50.0 to 5 9.9 in adult 03/04/2018 Epigastric pain 10/27/2016 Morbid obesity 10/27/2016 Heartburn 10/27/2016 Dysphagia 10/27/2016 Renal lesion 10/24/2016 Nausea and vomiting 10/24/2016 Umbilical hernia 10/24/2016 Gastric lesion 10/24/2016 Unspecified essential hypertension 05/27/2005 Migraine, unspecified, without mention of intractable migraine without mention of status migrainosus Depressive disorder, not elsewhere classified Resolved Problems Problem Noted Date Resolved Date Abdominal pain 10/24/2016 10/25/2016 S/P bariatric surgery 10/24/2016 07/21/2018 Overview: Gastric sleeve Encounters Date Type Specialty Care Team Description 12/27/2021 Office Visit Surinder Villanueva MD Consult from Last 3 Months Immunizations Name Administration Dates Next Due Influenza, IIV3 (Age >=3 years) 02/06/2012, 02/28/2011, 03/01 Influenza, IIV4 06/17/2017, 03/13/2016, 03/15/2015, 02/02/2015, 02/03/2014, 02/06/2012, 03/15/2009 Pneumococcal Poly,23-Valent 06/17/2017 (Pneumovax) Td (Age >=7 Years) 04/11/2015 Family History Medical History Relation Name Comments Alzheimer's disease Maternal Grandfather Hypertension Maternal Grandfather Alzheimer's disease Maternal Grandmother Clotting disorder Maternal Grandmother Hypertension Maternal Grandmother Other Maternal Grandmother BREAST? Clotting disorder Mother Hypertension Mother Obesity Mother Hypertension Paternal Grandfather Obesity Sister Relation Name Status Comments Brother Alive Father Alive Maternal Grandfather Maternal Grandmother Mother Alive Paternal Grandfather Paternal Grandmother Sister Alive 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 Tobacco Use Types Packs/Day Years Used Date Never Smoker Smokeless Tobacco: Never Used Alcohol Use Standard Drinks/Week Comments Yes 0 (1 standard drink = 0.6 oz pure alcoho l) occ. 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 Respiratory Rate 14 12/27/2021 10:34 AM CDT Oxygen Saturation 90% 07/22/2018 4:21 PM NEEDLEWORKER Inhaled Oxygen Concentration - - Weight 109.7 kg (241 lb 12.8 oz) 07/22/2019 11:00 AM NEEDLEWORKER Height 162.6 cm (5' 4.02) 07/22/2019 11:00 AM NEEDLEWORKER Body Mass Index 41.48 07/22/2019 11:00 AM NEEDLEWORKER Plan of Treatment Health Maintenance Due Date Last Done Comments Tdap 1978 Depression screening for age 12+ 1979 Hepatitis C screening for age 0207/12/1985 18-79 Colonoscopy through age 75 2012 Lipids for age 45-75 2012 07/19/2004 Mammogram for age 45-75 2012 06/16/2005 Pap test for age 21-65 01/26/2017 01/26/2014, 01/26/2014, 11/21/2010, Additional history exists Zoster (shingles) series for age 0207/12/2017 50+ (1 of 2) BMI (ht and wt on same day) for 07/22/2020 07/22/2019, 07/03, age 18+ 01/21/2019, Additional history exists COVID-19 vaccine series (5 - 01/07/2022 11/12/2021, 021, Booster for Pfizer series) 09/08/2020, Additiona l history exists Influenza for age 50-64 01/30/2022 06/17/2017, 03/13/2016, 03/15/2015, Additional history exists Tetanus booster 04/11/2025 04/11/2015 Results Not on filefrom Last 3 Months Insurance Payer Benefit Plan / Subscriber ID Effective Dates Phone Addre ss Type Group WC 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 WORKERS [id number] 2008-Presen [id number] [place] [address] MEDICA MEDICA CHOICE [id number] 2019-Presen [address] [address] [place] [address] MEDICA MEDICA [id number] 2019-Presen [address] [place] [address] (Work) Advance Directives Latest Code Status on File Code Status Date Activated Date Inactivated Comments Full Code 07/21/2018 11:08 AM 07/22/2018 7:22 PM Full Code 10/27/2016 11:49 AM 10/27/2016 3:16 PM Code Status Discussion: Discussed Full Code 10/25/2016 7:56 PM 10/26/2016 5:06 PM Full Code 10/24/2016 11:24 PM 10/25/2016 7:56 PM Code Status Discussion: Discussed Care Teams Packer Insulation Relationship Specialty Start Date End Date Francie Sharpe MD PCP - General Family Practice 03/04/[address]1999 [place] [address] Saige Holder RN Nurse Clinician 03/09/[address] [place] [address] Romain Doty MD Surgery - General 03/09/[address] [place] [address] [phone] (work)
--- OUTSIDE RECORDS SUMMARY | 2022-03-28 08:57 | XMS_ITS | Encounter Summary ---
:1965 Author Organization [facility] Address [address] [place] [address] Care Team Providers Name Role Phone Unavailable Primary Care Provider Unavailable Encounter Details Date Type Department Care Team Description 07/28/2008 Hospital Encounter [facility] INPT/OBSRV Maritza Deal M.D. 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 Tobacco Use Types Packs/Day Years Used Date Smoking Tobacco: Never Assessed Sex Assigned at Date Recorded Not on file documented as of this encounter Plan of Treatment Not on filedocumented as of this encounter Visit Diagnoses Not on filedocumented in this encounter
--- OUTSIDE RECORDS SUMMARY | 2022-03-28 08:57 | XMS_ITS | Encounter Summary ---
:1965 Author Organization [facility] Address [address] [place] [address] Care Team Providers Name Role Phone Unavailable Primary Care Provider Unavailable Reason for Visit Appointment Request (Routine) - Closed Specialty Diagnoses / Procedures Referred By Contact Refer red To Contact Nephrology and Francie Sharpe Hypertension M.D. [address] [place] [address] Referral ID Status Reason Start Date Expiration Date Visits Requ ested Visits Authorized [id number] Closed 11/28/2020 11/28/2021 1 1 Encounter Details Date Type Department Care Team Description 12/11/2020 External Outreach Division of Abhinav Tian, [facility] and Harry Cardoso, Ureteral Hypertension in Ph.D. [place], [place] [address] [place] [address] [place] [phone] 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 Tobacco Use Types Packs/Day Years Used Date Smoking Tobacco: Never Assessed Sex Assigned at Date Recorded Not on file documented as of this encounter Consult Notes Janae Zuniga M.D., Ph.D. - 12/11/2020 4:00 PM CDT Please see scanned in note under document viewer tab for the [facility] outreach visit from this date. documented in this encounter Plan of Treatment Not on filedocumented as of this encounter Visit Diagnoses Diagnosis [facility] documented in this encounter
[2022-03-28 12:10] LABS: Albumin* 4.2 g/dL (3.3-5.0); Chloride* 101 mmol/L (96-114); Potassium* 5.2 mmol/L (3.6-5.1); Sodium* 142 mmol/L (135-149)
[2022-03-28 12:12] LABS: Bilirubin Total* 0.5 mg/dL (0.1-1.5); Creatinine* 0.7 mg/dL (0.5-1.5); Estimated Glomerular Filt Rate 103 ml/min
[2022-03-28 12:13] LABS: Alanine Aminotransferase* 26 U/L (4-35); Alkaline Phosphatase* 103 U/L (40-150); Aspartate Amino Transferase* 34 U/L (12-35); Blood Urea Nitrogen* 13 mg/dL (7-30); Calcium* 9.4 mg/dL (8.4-10.6); Carbon Dioxide* 34 mmol/L (20-32); Glucose* 87 mg/dL (60-115)
[2022-03-28 12:44] LABS: Ferritin* 8.4 ng/mL (11.1-264.0)
[2022-03-28 12:59] LABS: Vitamin B12* 677 pg/mL (243-894)
[2022-03-30 00:56] LABS: Zinc, Serum/Plasma 69.7 ug/dL (60.0-120.0)
[2022-03-30 09:55] LABS: Folate, RBC 793 ng/mL (>=366); Hematocrit (client supplied) 39.7 %
[2022-03-31 10:45] LABS: Vitamin A (Retinol) 0.54 mg/L (0.30-1.20)
== END 2022-03-28 08:39 | disposition home or self-care (01) ==
PROVIDERS: PCP Family Medicine; Visit Provider Family Medicine
DX: R25.2 Cramp and spasm (principal); R52 Pain, unspecified; R53.83 Other fatigue; Z98.84 Bariatric surgery status
CPT/HCPCS: 80053; 82525; 82607; 82728; 82747; 83735; 84443; 84446; 84590; 84597; 84630

== ENCOUNTER 2022-05-27 15:14 | Outpatient (CLI) | payer OTHER, SELFPAY ==
--- NOTE | 2022-05-27 15:20 | CRLHL7_ITS ---
For Patients: As a result of the Century Cures Act, medical imaging exams and procedure reports are released immediately into your electronic medical record. You may view this report before your referring provider. If you have questions, please contact your health care provider. BILATERAL SCREENING MAMMOGRAM WITH COMPUTER-AIDED DETECTION AND TOMOSYNTHESIS TECHNIQUE: CC and MLO views were obtained. These mammographic images have been obtained using full-field digital technique. These mammographic images were interpreted with the benefit of computer-aided detection. Breast tomosynthesis was used in this interpretation. COMPARISON FILM: 01/04/21, 12/30/19, 12/10/18. FINDINGS: There are scattered areas of fibroglandular density. IMPRESSION: There is no radiographic evidence for malignancy. ASSESSMENT: BI-RADS Category 1: Negative RECOMMENDATION: Routine screening mammogram in 1 year. A lay language report of this examination will be provided to the patient. SURINDER MARIE M.D. Diagnostic Radiologist [email or web address] Transcribed: 6:[address]/Dictated by: Surinder Marie MD @ 05/28/2022 9:24:00 AM (Electronically Signed)
== END 2022-05-27 15:15 | disposition home or self-care (01) ==
LOC: MAMMO 15:15
PROVIDERS: PCP Family Medicine; Visit Provider Family Medicine
DX: Z12.31 Encounter for screening mammogram for malignant neoplasm of breast (principal)
CPT/HCPCS: 77063; 77067

== ENCOUNTER 2022-06-01 19:47 | Outpatient (CLI) | payer OTHER, SELFPAY ==
--- OUTSIDE RECORDS SUMMARY | 2022-06-01 19:50 | XMS_ITS | Continuity of Care Document ---
:1965 Author Organization [facility] Address [address] [address] [place] [address] Phone Care Team Providers Name Role Phone Surinder Maher MD Unavailable Unavailable Procedures Procedure Date Init Inpt Cons New/est Mod-hi Ugi Endo; Dx W/wo Collec Specm Advance Directives Directive Yes / No Effective Date File Name No Information Encounters Encounter Practice Location Reason(s) Diagnoses Date Provider Provide rs Description For Visit Copied on Encounter [facility] [place] No [facility] Information [address] MD [place]. [facility], [place] [address] [facility] [address], [facility], [facility] , [place], [address], [id number], [place] [facility], [place], tel:[phone] , [place]. tel:[phone] Init Inpt [facility] [place] No [facility] Referring Cons New/est [facility] Information 7-[address] MD [place] . Provider: [facility], [facility] [address] [facility] [place] [address], [address] [facility] [address], , [place], [address], [place], [id number], [place], [address]. [facility], [place], tel:[phone] tel:[id number] , [place]. tel:[phone] Family History Family Member Type Diagnosis Age At Onset No Information Payers Payer name Insurance type Covered libertarian ID Authorization(s ) [employer] CI [id number] 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 Type Description Quantity Date Captured [...] Effective Dates (start - stop) Status M crista No Information
--- NOTE | 2022-06-18 13:23 | W.PM.SLEEP ---
Sleep Study Details Details Interpreting Provider: Joel Rodriguez MD Date of Sleep Study: 06/01/22 Sleep Study Details: STUDY TYPE:? Home ? BMI:? 45 ORDERING PROVIDER:Gretel Trejo INDICATION:? Concerns about sleep apnea ? SLEEP SUMMARY:? 400.4 minutes monitored RESPIRATORY SUMMARY:? AHI 30.1. Note entire study was done supine position Low oxygen 82% 32.3% of study oxygen less than 90%, 0.2% of study oxygen less than 85% 29.6% snoring PERIODIC LIMB MOVEMENTS OF SLEEP:? Not recorded CARDIAC:? Range 59-113, mean 69.6 IMPRESSION:? Severe obstructive sleep apnea with overall AHI of 30.1. Oxygenation was less than 90% for 32.3% of the study. RECOMMENDATION: Treatment options include in-lab CPAP titration because of low oxygenation versus AutoSet CPAP pressure 4-18. Once effective CPAP therapy is established would recommend an overnight oximetry study because of the patient's hypo oxygenation during this study. Weight loss is also recommended
== END 2022-06-01 19:48 | disposition home or self-care (01) ==
LOC: SLEEP 19:48
PROVIDERS: PCP Family Medicine; Visit Provider Internal Medicine
DX: G47.33 Obstructive sleep apnea (adult) (pediatric) (principal)
CPT/HCPCS: 95806

== ENCOUNTER 2022-08-06 15:13 | Outpatient (CLI) | payer OTHER, SELFPAY | END 2022-08-06 15:14 | disposition home or self-care (01) | LOC: NFLDREF 08-08 14:27 | PROVIDERS: PCP Family Medicine; Referring Provider Family Medicine; Visit Provider Family Medicine | DX: U07.1 COVID-19 (principal); R05.9 Cough, unspecified | CPT/HCPCS: 87635 ==

== ENCOUNTER 2022-08-07 00:57 | Emergency (ER) | payer OTHER, SELFPAY ==
[2022-08-07] VITALS (20 sets, daily range): BP systolic 118–173; BP diastolic 69–98; PULSE 82–99; RESP 18–20; TEMP 36.6–36.7; O2SAT 89–96; BMI 44.6
--- NOTE | 2022-08-07 01:22 | CRLHL7_ITS ---
For Patients: As a result of the Century Cures Act, medical imaging exams and procedure reports are released immediately into your electronic medical record. You may view this report before your referring provider. If you have questions, please contact your health care provider. HISTORY: Chest pain. COMPARISON: Chest two views from 07/27/2016 FINDINGS: A portable semi-erect AP view of the chest was obtained at 0140 hours. There is new mild vascular engorgement with new mild interstitial pulmonary edema, findings of new mild congestive failure. There is increased mild linear density in the left lateral lower lung, consistent with atelectasis. There is no sign of a pleural effusion. The heart remains normal in size. The mediastinum is normal in appearance. The osseous structures are normal in appearance for the patient`s age. IMPRESSION: New mild congestive failure. Dictated by Tonio Harvey MD @ 08/07/2022 1:57:24 AM (Electronically Signed)
--- NOTE | 2022-08-07 01:28 | ED.SOB ---
HPI - SOB/Dyspnea General Date Seen: 08/07/22 Chief Complaint: Shortness of Breath/Dyspnea Stated Complaint: Trouble Breathing, Covid+ Time Seen by Provider: 08/07/22 00:59 Source: patient and family Mode of arrival: ambulatory Limitations: no limitations History of Present Illness HPI Narrative: Patient is a 57-year-old female who suffers from morbid obesity was diagnosed with COVID yesterday after 48 hour history of symptoms, she has had shortness of breath with this and some substernal chest discomfort also, since this started it does not seem to be improving. She has also had a low-grade fever at home, takes Tylenol 1 g p.o. t.i.d. with this. Shortness of breath or exertional shortness of breath seems to be the course with this along with a sore throat runny nose,. She does not have any leg swelling, no nausea vomiting no diarrhea, no abdominal pain and overall feels very very weak. She is a vaccinated x3 for COVID. A significant history gives a history of fatigue, severe sleep apnea, mild intermittent asthma, but has not been using her inhalers more than she usually uses. She is a nonsmoker, elicited complaint: shortness of breath, cough and chest pain Pertinent past history: asthma Context: recent illness Timing: constant Severity: moderate Exacerbating factors: exertion, movement, coughing and talking Relieving factors: nothing Known history of: asthma Associated symptoms: chest pain, fever, cough and wheezing Treatment prior to arrival: none Related Data Home oxygen amount: none Home Medications Medication Instructions Recorded Confirmed albuterol sulfate 90 mcg/actuation 2 inh inhalation Q4-6H PRN 12/10/21 08/07/22 aerosol inhaler buspirone 10 mg tablet 20 mg PO BID 12/10/21 08/07/22 cholecalciferol (vitamin D3) 50 2,000 unit PO DAILY 12/10/21 08/07/22 mcg (2,000 unit) tablet trazodone 50 mg tablet 150 mg PO HS PRN 12/27/21 08/07/22 cyanocobalamin (vitamin B-12) 500 500 mcg PO Q2D 06/27/22 08/07/22 mcg tablet duloxetine 30 mg capsule,delayed 30 mg PO BID 06/27/22 08/07/22 release fexofenadine 180 mg tablet 180 mg PO DAILY 06/27/22 08/07/22 gabapentin 300 mg capsule 600 mg PO HS 08/07/22 08/07/22 Previous Rx's Medication Instructions Recorded gabapentin 100 mg capsule 100 mg PO QDAY #90 caps 06/27/22 nirmatrelvir 300 mg (150 mg See Rx Instructions PO .COMPLEX 08/07/22 x2)-ritonavir 100 mg tablet,dose #30 ea pack(EUA) (Paxlovid) prednisone 20 mg tablet 20 mg PO BID #10 tabs 08/07/22 Allergies Allergy/AdvReac Type Severity Reaction Status Date / Time codeine AdvReac Mild nausea and Verified 08/07/22 01:21 vomiting NSAIDS (Non-Steroidal AdvReac Mild avoid due Verified 08/07/22 01:21 Anti-Inflamma to Hx [place] gastric bypass Review of Systems Status of ROS: Reports: 10 or more systems reviewed and unremarkable except as noted in History and below [facility] Medical History (Updated 08/07/22 @ 03:37 by Jaxon Reyes MD) Depression (03/13/10) Dysphagia (10/27/16) Fatigue Fibromyalgia Gastroesophageal reflux Generalized anxiety disorder H/O CT scan of abdomen (~2015) Heartburn (10/27/16) Migraine (03/13/10) Mild intermittent asthma in adult without complication Obstructive sleep apnea syndrome On postmenopausal hormone replacement therapy Orthostatic hypotension (~11/2021) Subarachnoid hemorrhage (08/22/20) Umbilical hernia Surgical History History of kidney surgery (1978) History of [place] gastric bypass (07/2018) History of [place] gastric bypass (1989) Status post delivery (1986) Status post hysterectomy with oophorectomy (2015) Family History Maternal Grandmother Alzheimers disease Breast cancer Schizophrenia Paternal Grandmother Alzheimers disease Mother Depression Other Migraine 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: , 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 Vital signs are listed in stable. Pupils are equal round reactive to light, there is no scleral icterus redness, TMs are normal, oropharynx is normal. Hydration status is good. Her neck is supple full range of motion, she is able sit up for me, in the gurney. Her chest is good air entry bilaterally with no wheezing crackles noted, heart sounds are normal, no reproducible chest pain on palpation, her abdomen is obese. There is no guarding, no tenderness elicited there is no organomegaly, and bowel sounds are normal. She moves all extremities independently well has large extremities, but I do not see any increased swelling, tenderness to palpation suggestive of a DVT. She moves all extremities independently and well with absence of rashes. Const: Vital Signs, click to edit/add: Vital Signs - 24 hr 08/07/22 01:19 08/07/22 01:14 08/07/22 01:18 Temperature 98.0 F Pulse Rate 96 98 Pulse Rate [Right Pulse Oximeter] 99 Respiratory Rate 20 Blood Pressure 125/69 Blood Pressure [Ri ght Upper Arm] 145/81 H Pulse Oximetry 96 94 96 Oxygen Delivery Me thod Room Air 08/07/22 01:46 08/07/22 01:19 08/07/22 01:30 Temperature Pulse Rate 93 96 Pulse Rate [Right Pulse Oximeter] Respiratory Rate Blood Pressure Blood Pressure [Ri ght Upper Arm] Pulse Oximetry 94 94 93 Oxygen Delivery Me thod 08/07/22 01:33 08/07/22 01:34 08/07/22 02:00 Temperature Pulse Rate 91 91 88 Pulse Rate [Right Pulse Oximeter] Respiratory Rate Blood Pressure 141/75 H Blood Pressure [Ri ght Upper Arm] Pulse Oximetry 91 92 92 Oxygen Delivery Me thod 08/07/22 02:02 08/07/22 02:03 08/07/22 02:30 Temperature Pulse Rate 88 89 89 Pulse Rate [Right Pulse Oximeter] Respiratory Rate Blood Pressure 161/90 H Blood Pressure [Ri ght Upper Arm] Pulse Oximetry 93 91 92 Oxygen Delivery Me thod 08/07/22 02:32 08/07/22 03:11 08/07/22 03:28 Temperature Pulse Rate 90 86 82 Pulse Rate [Right Pulse Oximeter] Respiratory Rate Blood Pressure 173/98 H 123/70 Blood Pressure [Ri ght Upper Arm] Pulse Oximetry 92 92 91 Oxygen Delivery Me thod Documenting provider has reviewed patient's vital signs: yes Course Reevaluation(s) Reevaluation #1: Patient's labs reviewed, troponin was reassuring, white blood cell count normal, basic metabolic lb normal, D-dimer elevated at 0.66, we should get a chest CT, given the hypercoagulable state of COVID, along with the the chest pain. We will do a 2nd troponin, if this is normal long with the EKG that shows no changes, this is reassuring for ischemic heart disease. Time: 03:07 Reevaluation #2: Chest CT shows no evidence of pulmonary embolism, otherwise normal. I think at this point we can discharge her home, I do think she should use the Paxlovid along with the prednisone. For her asthma. Also with the COVID. Follow-up should be if worsening signs and symptoms, buying an oxygen saturation would also be a good idea. Monitoring this Time: 04:04 Vital Signs Vital signs: Initial Vital Signs Pulse Rate 96 08/07/22 01:14 Pulse Oximetry 94 08/07/22 01:14 Vital Signs Pulse Rate 96 08/07/22 01:14 Pulse Oximetry 94 08/07/22 01:14 Temperature 98.0 F 08/07/22 01:19 Pulse Rate 82 08/07/22 03:28 Respiratory Rate 20 08/07/22 01:19 Blood Pressure 123/70 08/07/22 03:28 Pulse Oximetry 91 08/07/22 03:28 Oxygen Delivery Method 08/07/22 01:19 MDM - SOB/Dyspnea MDM Narrative Medical decision making narrative: Life-threatening differential diagnosis includes occluded COPD exacerbation, pulmonary edema, acute coronary syndromes, pulmonary embolism, pneumonia, and pneumothorax. Other differential diagnosis considerations include asthma, bronchitis as well as other etiologies Medical Records Attestation: I reviewed the patient's medical records. Medical records narrative: Reviewed medical records from her stress test was done, on November of 2021, this was normal, I reviewed reviewed the EKG from that time period, there is some diffuse ST wave changes, seem a slight bit more pronounced on this EKG. They seem to be throughout the precordium. She had a normal Lexiscan done at the same time. Lab Data Attestation: I reviewed the patient's lab results. Labs: Lab Results 08/07/22 08/07/22 08/07/22 Range/Units 01:22 01:30 01:30 WBC 5.11 (4.50-11.00) K/uL RBC 4.34 (4.00-5.20) m/uL Hgb 11.3 L (12.0-16.0) gm/dL Hct 36.1 (33.0-51.0) % MCV 83 (80-100) fL MCH 26 (26-34) pg MCHC 31 L (32-36) gm/dL RDW Coeff of Kurt 13.7 (11.5-15.5) % Plt Count 252 (140-440) K/uL Neut % (Auto) 72.7 H (42.0-72.0) % Lymph % (Auto) 15.3 L (20-44) % Stan[place]aus % (Auto) 11.4 H (0.0-11.0) % Eos % (Auto) 0.2 (0.0-7.0) % Baso % (Auto) 0.2 (0.0-3.0) % Neut # (Auto) 3.70 (1.7-7.0) K/uL Lymph # (Auto) 0.80 L (0.90-2.90) K/uL [place] # (Auto) 0.60 (0.00-0.90) K/UL Eos # (Auto) 0.01 (0.00-0.50) K/uL Baso # (Auto) 0.01 (0.00-0.30) K/uL INR 0.97 (0.91-1.10) APTT 32 (23-33) Seconds D-Dimer Quant (PE/DVT) (0.00-0.50) ug/ml Sodium (135-149) mmol/L Potassium (3.6-5.1) mmol/L Chloride (96-114) mmol/L Carbon Dioxide (20-32) mmol/L BUN (7-30) mg/dL Creatinine (0.5-1.5) mg/dL Estimated Creat Clear Estimated GFR ml/min Glucose (60-115) mg/dL Calcium (8.4-10.6) mg/dL NT-Pro-B Natriuret Pep pg/mL POC Troponin I 0.01 (0.01-0.04) ng/ml 08/07/22 08/07/22 08/07/22 Range/Units 01:30 01:30 03:19 WBC (4.50-11.00) K/uL RBC (4.00-5.20) m/uL Hgb (12.0-16.0) gm/dL Hct (33.0-51.0) % MCV (80-100) fL MCH (26-34) pg MCHC (32-36) gm/dL RDW Coeff of Kurt (11.5-15.5) % Plt Count (140-440) K/uL Neut % (Auto) (42.0-72.0) % Lymph % (Auto) (20-44) % Stan[place]aus % (Auto) (0.0-11.0) % Eos % (Auto) (0.0-7.0) % Baso % (Auto) (0.0-3.0) % Neut # (Auto) (1.7-7.0) K/uL Lymph # (Auto) (0.90-2.90) K/uL [place] # (Auto) (0.00-0.90) K/UL Eos # (Auto) (0.00-0.50) K/uL Baso # (Auto) (0.00-0.30) K/uL INR (0.91-1.10) APTT (23-33) Seconds D-Dimer Quant (PE/DVT) 0.66 H (0.00-0.50) ug/ml Sodium 138 (135-149) mmol/L Potassium 4.2 (3.6-5.1) mmol/L Chloride 102 (96-114) mmol/L Carbon Dioxide 31 (20-32) mmol/L BUN 11 (7-30) mg/dL Creatinine 0.6 (0.5-1.5) mg/dL Estimated Creat Clear 91.48 Estimated GFR 106 ml/min Glucose 110 (60-115) mg/dL Calcium 9.0 (8.4-10.6) mg/dL NT-Pro-B Natriuret Pep 98 pg/mL POC Troponin I 0.00 L (0.01-0.04) ng/ml Imaging Data Chest x-ray: My impression: Normal chest x-ray Radiologist's impression: Patient: JUS GARCIA Facility:[facility] Patient ID:?[id number] Site Patient ID:?[id number]. Site :?[id number] Study:?XRay Chest ap portable-08/07/2022 1:54:33 AM Ordering Physician:Chandni Coates Final Report: HISTORY: Chest pain. COMPARISON: Chest two views from 07/27/2016 FINDINGS: A portable semi-erect AP view of the chest was obtained at 0140 hours. There is new mild vascular engorgement with new mild interstitial pulmonary edema, findings of new mild congestive failure. There is increased mild linear density in the left lateral lower lung, consistent with atelectasis. There is no sign of a pleural effusion. The heart remains normal in size. The mediastinum is normal in appearance. The osseous structures are normal in appearance for the patient`s age. IMPRESSION: New mild congestive failure. Dictated by Tonio Harvey MD @ 08/07/2022 1:57:24 AM (Electronic Signature) atient: JUS GARCIA Facility:?[facility] Patient ID:?[id number] Site Patient ID:?[id number]. Site :?[id number] Study:?CT Chest Angio with 95cc PE Protocol-08/07/2022 3:25:56 AM Ordering Physician:Chandni Coates Final Report: INDICATION: Shortness of breath. Chest pain. Elevated D-dimer. COMPARISON: Chest radiograph from today. TECHNIQUE: CT examination of the chest was performed with the uneventful intravenous administration of 95 cc of Isovue 370 while 1.5 mm thick axial sections were obtained from above the apices of the lungs through the mid renal level. Please note that all CT scans at this facility use dose modulation, iterative reconstruction, and/or weight-based dosing when appropriate to reduce radiation dose to as low as reasonably achievable. FINDINGS: : There is no sign of pulmonary embolism, with normal enhancement and branching of the pulmonary arteries. There is moderate linear density in the anterior-lateral inferior lingula, probably scarring from previous inflammatory disease. There is mild linear density in the posterior-medial right lower lobe toward the lung base, probably scarring from previous inflammatory disease. The lungs are otherwise clear. There is no sign of mediastinal or hilar mass or adenopathy. There is mild LAD coronary calcification. The heart is normal in size. There is age appropriate appearance of the thoracic aorta and ascending great vessels. There is no sign of supraclavicular or axillary mass or adenopathy. The visualized superior liver, spleen, pancreas, right kidney, and adrenals are normal in appearance. There is a 3.8 centimeter cyst in the upper pole of the left kidney. There are calcifications in the upper pole and interpolar region of the left kidney adjacent to the cyst, probably from previous inflammatory disease. The osseous structures are normal in appearance for the patient`s age. IMPRESSION: No sign of pulmonary embolism. Moderate linear scarring in the anterior-lateral inferior lingula. Mild linear scarring in the posterior-medial left lower lobe. Cyst in the upper pole of the left kidney measuring 3.8 centimeters in diameter along with nearby punctate cortical calcifications, consistent with previous inflammatory disease. Please note that all CT scans at this facility use dose modulation, iterative reconstruction, and/or weight-based dosing when appropriate to reduce radiation dose to as low as reasonably achievable. Dictated by Tonio Harvey MD @ 08/07/2022 4:00:11 AM (Electronic Signature) ECG Data Attestation: I personally reviewed and interpreted this ECG as follows: Prior ECG tracings: available for review Ischemic changes: non-specific ST-T wave changes Interpretation: Rhythm appears sinus, with a ventricular rate of 92, diffuse ST wave changes, are noted throughout the precordium. Repeat EKG done shows still ST wave flattening throughout the precordium, the changes are really not significantly changed from previous EKG done in 2021. If anything there improved from earlier. Discharge Plan Discharge Clinical Impression: COVID-19, Shortness of breath, Chest pain Patient Disposition: Home w/ Parent or Adult Condition: Stable Instructions: Chest Pain (DC), Noncardiac Chest Pain (ED), Shortness of Breath (ED), COVID-19 (Coronavirus Disease 2019) (ED) Additional Instructions: Home rest use of paxlovid and prednisone as directed. Recommend Tylenol 1 g Q 8 H, lots of fluids, rest, monitor your oxygen saturations if he drop below 90% that he should come back to be seen, increasing chest pain shortness of breath although prompt re-evaluation. Or increased use of your inhalers. The COVID medication interacts with some your medications, you should hold your trazodone, and your buspirone and then restart this 3 days after you finish taking the paxlovid Activity Level: No Restrictions and Light activity Discharge Diet: Regular Prescriptions: New Paxlovid (EUA) 300 mg (150 mg x 2)-100 mg tablets,dose pack See Rx Instructions .ROUTE .COMPLEX Qty: 30 0RF Rx Instructions: take TWO 150 mg tablets of nirmatrelvir with ONE 100 mg tablet of ritonavir twice daily for 5 days hold buspirone, and trazodone, and then restart them 3 days after finishing the medication prednisone 20 mg tablet 20 mg PO BID Qty: 10 0RF No Action duloxetine 30 mg capsule,delayed release(DR/EC) 30 mg PO BID gabapentin 100 mg capsule 100 mg PO QDAY Qty: 90 4RF Rx Instructions: 1 tab po qam (in addition to 600mg at bed time gabapentin 300 mg capsule 600 mg PO HS cholecalciferol (vitamin D3) 50 mcg (2,000 unit) tablet 2,000 unit PO DAILY buspirone 10 mg tablet 20 mg PO BID albuterol sulfate 90 mcg/actuation HFA aerosol inhaler 2 inh inhalation Q4-6H PRN trazodone 50 mg tablet 150 mg PO HS PRN cyanocobalamin (vitamin B-12) 500 mcg tablet 500 mcg PO Q2D fexofenadine 180 mg tablet 180 mg PO DAILY Follow Up/Referrals: Francie Sharpe MD [Primary Care Provider] - Stand Alone Forms: [employer] Info Instructions
--- OUTSIDE RECORDS SUMMARY | 2022-08-07 01:29 | XMS_ITS | Continuity of Care Document ---
:1965 Author Organization [facility] Address [address] [address] [place] [address] Phone Care Team Providers Name Role Phone Surinder Maher MD Unavailable Unavailable Procedures Procedure Date Init Inpt Cons New/est Mod-hi Ugi Endo; Dx W/wo Collec Specm Advance Directives Directive Yes / No Effective Date File Name No Information Encounters Encounter Practice Location Reason(s) Diagnoses Date Provider Provide rs Description For Visit Copied on Encounter [facility] [place] No [facility] Information 8-201 MD Cadena. [facility], [place] [address] [facility] [id number], [facility], [place] , [place], [address], [id number], [place] [facility], [place], tel:[phone] , [place]. tel:[phone] Init Inpt [facility] [place] No [facility] Referring Cons New/est [facility] Information 7-201 MD Cadena . Provider: [facility], [facility] [address] [facility] [place], [address], [address] [facility] [address], , [place], [address], [place], [id number], [place], [address]. [facility], [place], tel:[phone] tel:[phone] , [place]. tel:[phone] Family History Family Member Type Diagnosis Age At Onset No Information Payers Payer name Insurance type Covered green party ID Authorization(s ) [employer] CI [id number] 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 Type Description Quantity Date Captured [...]
--- OUTSIDE RECORDS SUMMARY | 2022-08-07 01:29 | XMS_ITS | Continuity of Care Document ---
:1965 Author Organization [facility] Address [address] [address] [place] [address] Phone Care Team Providers Name Role Phone Surinder Maher MD Unavailable Unavailable Procedures Procedure Date Init Inpt Cons New/est Mod-hi Ugi Endo; Dx W/wo Collec Specm Advance Directives Directive Yes / No Effective Date File Name No Information Encounters Encounter Practice Location Reason(s) Diagnoses Date Provider Provide rs Description For Visit Copied on Encounter [facility] [place] No [facility] Information 8-201 MD Cadena. [facility], [place] [address] [facility] [address], [facility], [facility] , [place], [address], [id number], [place] [facility], [place], tel:[phone] , [place]. tel:[phone] Init Inpt [facility] [place] No [facility] Referring Cons New/est [facility] Information 7-201 MD Cadena . Provider: [facility], [facility] [address] [facility] [place], [address], [address] [facility] [address], , [place], [address], [place], [id number], [place], [address]. [facility], [place], tel:[phone] tel:[phone] , [place]. tel:[phone] Family History Family Member Type Diagnosis Age At Onset No Information Payers Payer name Insurance type Covered libertarian ID Authorization(s ) [employer] CI [id number] 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 Type Description Quantity Date Captured [...]
[2022-08-07 01:37] LABS: Basophils Absolute Auto 0.01 K/uL (0.00-0.30); Basophils Percent Auto 0.2 % (0.0-3.0); Eosinophils Absolute Auto 0.01 K/uL (0.00-0.50); Eosinophils Percent Auto 0.2 % (0.0-7.0); Hematocrit 36.1 % (33.0-51.0); Hemoglobin* 11.3 gm/dL (12.0-16.0); Immature Granulocytes Abs Auto 0.01 K/uL (0.00-0.30); Immature Granulocytes Pct Auto 0.2 %; Lymphocytes Percent Auto 15.3 % (20-44); Mean Corpuscular HGB Conc 31 gm/dL (32-36); Mean Corpuscular Hemoglobin 26 pg (26-34); Mean Corpuscular Volume 83 fL (80-100); Monocytes Percent Auto 11.4 % (0.0-11.0); Neutrophils Percent Auto 72.7 % (42.0-72.0); Platelet Count* 252 K/uL (140-440); RDW Coefficient of Variation % 13.7 % (11.5-15.5); Red Blood Count 4.34 m/uL (4.00-5.20); White Blood Count* 5.11 K/uL (4.50-11.00)
[2022-08-07] MEDS: 0.9 % SODIUM CHLORIDE 1000 ml 1,000 ML IV (01:37)
[2022-08-07 01:39] LABS: Slide Review Reflex No
[2022-08-07 01:48] LABS: Troponin, Point-of-Care* 0.01 ng/ml (0.01-0.04)
[2022-08-07 01:51] LABS: Chloride* 102 mmol/L (96-114)
[2022-08-07 01:52] LABS: Potassium* 4.2 mmol/L (3.6-5.1); Sodium* 138 mmol/L (135-149)
[2022-08-07 01:54] LABS: Carbon Dioxide* 31 mmol/L (20-32); Creatinine* 0.6 mg/dL (0.5-1.5); Est. Creatinine Clearance* 91.48; Estimated Glomerular Filt Rate 106 ml/min; INR 0.97 (0.91-1.10); Prothrombin Time 13.5 Seconds
[2022-08-07 01:55] LABS: Blood Urea Nitrogen* 11 mg/dL (7-30); Glucose* 110 mg/dL (60-115); Partial Thromboplastin Time* 32 Seconds (23-33)
[2022-08-07 01:58] LABS: D Dimer Quantitative* 0.66 ug/ml (0.00-0.50)
[2022-08-07 02:06] LABS: NT Pro B Type NatriureticPept* 98 pg/mL
[2022-08-07] MEDS: KETOROLAC 30 MG/ML inj IVP (02:25)
--- NOTE | 2022-08-07 02:39 | CRLHL7_ITS ---
For Patients: As a result of the Century Cures Act, medical imaging exams and procedure reports are released immediately into your electronic medical record. You may view this report before your referring provider. If you have questions, please contact your health care provider. INDICATION: Shortness of breath. Chest pain. Elevated D-dimer. COMPARISON: Chest radiograph from today. TECHNIQUE: CT examination of the chest was performed with the uneventful intravenous administration of 95 cc of Isovue 370 while 1.5 mm thick axial sections were obtained from above the apices of the lungs through the mid renal level. Please note that all CT scans at this facility use dose modulation, iterative reconstruction, and/or weight-based dosing when appropriate to reduce radiation dose to as low as reasonably achievable. FINDINGS: : There is no sign of pulmonary embolism, with normal enhancement and branching of the pulmonary arteries. There is moderate linear density in the anterior-lateral inferior lingula, probably scarring from previous inflammatory disease. There is mild linear density in the posterior-medial right lower lobe toward the lung base, probably scarring from previous inflammatory disease. The lungs are otherwise clear. There is no sign of mediastinal or hilar mass or adenopathy. There is mild LAD coronary calcification. The heart is normal in size. There is age appropriate appearance of the thoracic aorta and ascending great vessels. There is no sign of supraclavicular or axillary mass or adenopathy. The visualized superior liver, spleen, pancreas, right kidney, and adrenals are normal in appearance. There is a 3.8 centimeter cyst in the upper pole of the left kidney. There are calcifications in the upper pole and interpolar region of the left kidney adjacent to the cyst, probably from previous inflammatory disease. The osseous structures are normal in appearance for the patient`s age. IMPRESSION: No sign of pulmonary embolism. Moderate linear scarring in the anterior-lateral inferior lingula. Mild linear scarring in the posterior-medial left lower lobe. Cyst in the upper pole of the left kidney measuring 3.8 centimeters in diameter along with nearby punctate cortical calcifications, consistent with previous inflammatory disease. Please note that all CT scans at this facility use dose modulation, iterative reconstruction, and/or weight-based dosing when appropriate to reduce radiation dose to as low as reasonably achievable. Dictated by Tonio Harvey MD @ 08/07/2022 4:00:11 AM (Electronically Signed)
[2022-08-07] MEDS: METHYLPREDNISOLONE SOD SUCC 62.5 MG/ML (125) 125 MG IVP (03:44)
== END 2022-08-07 04:16 | disposition home or self-care (01) ==
PROVIDERS: Emergency Provider Family Medicine; PCP Family Medicine
DX: R06.02 Shortness of breath (principal); U07.1 COVID-19; R07.89 Other chest pain
CPT/HCPCS: 36415; 71045; 71260; 80048; 83880; 84484; 85025; 85379; 85610; 85730; 93005; 94761; 96374; 96375; 99284; 99285; J1885; J2930; J7030; Q9967

== ENCOUNTER 2022-08-15 15:39 | Emergency (ER) | payer OTHER, SELFPAY ==
[2022-08-15 15:46] VITALS: BP 124/87; PULSE 103; RESP 14; TEMP 36.2; O2SAT 99; BMI 44.1
--- NOTE | 2022-08-15 16:19 | ED_ITS ---
HPI - Dizziness General Chief Complaint: Dizziness/Vertigo Stated Complaint: Post Covid Dizzy Nausea Seeing Spots Time Seen by Provider: 08/15/22 15:50 History of Present Illness HPI Narrative: This 57-year-old female was diagnosed with COVID about 8 days ago. She was seen here in the emergency department and had a rather thorough workup at that time. This included a D-dimer and a CT scan of her chest which was negative for pulmonary embolism. She was started on Paxlovid and completed a 5 day course of this medicine. A about the same time she started this medicine and had than diagnosis of COVID she began to have symptoms of vertigo. She states that these symptoms are rather minimal when remaining still and worse with certain movement. She does not describe any unilateral weakness but did have some associated nausea and hot and cold feeling. She does not have any altered speech her inability to ambulate or other sign of neurologic deficit. Related Data Home Medications Medication Instructions Recorded Confirmed albuterol sulfate 90 mcg/actuation 2 inh inhalation Q4-6H PRN 12/10/21 08/07/22 aerosol inhaler buspirone 10 mg tablet 20 mg PO BID 12/10/21 08/07/22 cholecalciferol (vitamin D3) 50 2,000 unit PO DAILY 12/10/21 08/07/22 mcg (2,000 unit) tablet trazodone 50 mg tablet 150 mg PO HS PRN 12/27/21 08/07/22 cyanocobalamin (vitamin B-12) 500 500 mcg PO Q2D 06/27/22 08/07/22 mcg tablet duloxetine 30 mg capsule,delayed 30 mg PO BID 06/27/22 08/07/22 release fexofenadine 180 mg tablet 180 mg PO DAILY 06/27/22 08/07/22 gabapentin 300 mg capsule 600 mg PO HS 08/07/22 08/07/22 Previous Rx's Medication Instructions Recorded gabapentin 100 mg capsule 100 mg PO QDAY #90 caps 06/27/22 nirmatrelvir 300 mg (150 mg See Rx Instructions PO .COMPLEX 08/07/22 x2)-ritonavir 100 mg tablet,dose #30 ea pack(EUA) (Paxlovid) prednisone 20 mg tablet 20 mg PO BID #10 tabs 08/07/22 ketorolac 10 mg tablet 10 mg PO Q8H 5 days #15 tabs 08/15/22 meclizine 25 mg tablet 25 mg PO QID #20 tabs 08/15/22 ondansetron HCl 4 mg tablet 4 mg PO Q6H #20 tabs 08/15/22 Allergies Allergy/AdvReac Type Severity Reaction Status Date / Time codeine AdvReac Mild nausea and Verified 08/07/22 01:21 vomiting NSAIDS (Non-Steroidal AdvReac Mild avoid due Verified 08/07/22 01:21 Anti-Inflamma to Hx [place] gastric bypass Review of Systems Status of ROS: Reports: 10 or more systems reviewed and unremarkable except as noted in History and below Narrative: Constitutional: No fevers, no weight gain or loss. Eyes: No discharge. No vision changes. HENT: No congestion, no sore throat, no ear pain. Cardiovascular: No chest pain, no palpitations. Respiratory: No shortness of breath, no wheezes, no cough. COVID symptoms have largely resolved regarding respiratory symptoms. Gastrointestinal: No abdominal pain, no vomiting, no diarrhea. Genitourinary: No dysuria, no hematuria. Musculoskeletal: Normal range of motion. Skin: No rashes, no pruritis. Neurological: No weakness, sensory change, speech change. Vertigo symptoms as described above. Endo/Heme/Allergies: No bruising or bleeding. No polydipsia. Pysch: no suicidality, no anxiety, no insomnia. All other systems reviewed and are negative. [facility] Medical History (Updated 08/15/22 @ 17:56 by Laith Smart MD) Depression (03/13/10) Dysphagia (10/27/16) Fatigue Fibromyalgia Gastroesophageal reflux Generalized anxiety disorder H/O CT scan of abdomen (~2015) Heartburn (10/27/16) Migraine (03/13/10) Mild intermittent asthma in adult without complication Obstructive sleep apnea syndrome On postmenopausal hormone replacement therapy Orthostatic hypotension (~11/2021) Subarachnoid hemorrhage (08/22/20) Umbilical hernia Surgical History History of kidney surgery (1978) History of [place] gastric bypass (07/2018) History of [place] gastric bypass (1989) Status post delivery (1986) Status post hysterectomy with oophorectomy (2015) Family History Maternal Grandmother Alzheimers disease Breast cancer Schizophrenia Paternal Grandmother Alzheimers disease Mother Depression Other Migraine 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: , 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 HEENT: Normocephalic, atraumatic. Neck: Normal range of motion. Nontender. Supple. Heart: Regular. No murmurs. Normal rate. Intact distal pulses. Lungs: Clear to auscultation. No chest discomfort. No wheezes, rhonchi, or rales. Abdomen: Normal bowel sounds. Nontender. No rebound tenderness. Genitalia: Deferred. Back: No midline tenderness. Normal range of motion. Extremities: Normal range of motion. No injury. Skin: Intact. No rash. Warm. No erythema or pallor. Neurologic: No altered sensation. No weakness. Alert and oriented. No facial asymmetry. Tongue is midline. Qpivvd-ws-vaap is normal. Plastic Outfitter strength is equal bilaterally. No pronator drift. She is able to raise each leg from the bed. Psychiatric: No suicidality. No anxiety or depression. No insomnia. Nursing notes and vitals signs are reviewed. Const: Vital Signs, click to edit/add: Vital Signs - 24 hr 08/15/22 15:46 Temperature 97.1 F L Pulse Rate [Pulse Oximeter] 103 H Respiratory Rate 14 Blood Pressure [Le ft Upper Arm] 124/87 Pulse Oximetry 99 Oxygen Delivery Me thod Room Air Course Vital Signs Vital signs: Initial Vital Signs Temperature 97.1 F L 08/15/22 15:46 Temperature Source Temporal Artery Scan 08/15/22 15:46 Pulse Rate 103 H 08/15/22 15:46 Respiratory Rate 14 08/15/22 15:46 Blood Pressure 124/87 08/15/22 15:46 Blood Pressure Mean 99 08/15/22 15:46 Pulse Oximetry 99 08/15/22 15:46 Oxygen Delivery Method 08/15/22 15:46 Vital Signs Temperature 97.1 F L 08/15/22 15:46 Pulse Rate 103 H 08/15/22 15:46 Respiratory Rate 14 08/15/22 15:46 Blood Pressure 124/87 08/15/22 15:46 Pulse Oximetry 99 08/15/22 15:46 Oxygen Delivery Method 08/15/22 15:46 Temperature 97.1 F L 08/15/22 15:46 Pulse Rate 103 H 08/15/22 15:46 Respiratory Rate 14 08/15/22 15:46 Blood Pressure 124/87 08/15/22 15:46 Pulse Oximetry 99 08/15/22 15:46 Oxygen Delivery Method 08/15/22 15:46 MDM - Dizziness MDM Narrative Medical decision making narrative: This patient comes in with vertigo symptoms as described above. Her symptoms are likely peripheral and not due to a central process such as a cerebrovascular accident. Her neurologic exam is completely normal. I did discuss lab and imaging options with the patient and her and these were declined in a process of shared decision making. She did receive oral doses of meclizine and Zofran. This brought great improvement to her vertigo and nausea symptoms. She was also complaining of a headache for which she did receive an intramuscular injection of Toradol 30 mg. She states that she is feeling much better. She is okay to return home. I did prescribe these medicines for her to be used as needed and directed. Discharge Plan Discharge Clinical Impression: Headache, Vertigo Patient Disposition: Home, Self-Care Condition: Improved Additional Instructions: Take medications as needed and indicated. Follow up with MD or return if worsening. Prescriptions: New ondansetron HCl 4 mg tablet 4 mg PO Q6H Qty: 20 0RF ketorolac 10 mg tablet 10 mg PO Q8H 5 Days Qty: 15 0RF meclizine 25 mg tablet 25 mg PO QID Qty: 20 0RF No Action duloxetine 30 mg capsule,delayed release(DR/EC) 30 mg PO BID gabapentin 100 mg capsule 100 mg PO QDAY Qty: 90 4RF Rx Instructions: 1 tab po qam (in addition to 600mg at bed time gabapentin 300 mg capsule 600 mg PO HS Paxlovid (EUA) 300 mg (150 mg x 2)-100 mg tablets,dose pack See Rx Instructions .ROUTE .COMPLEX Qty: 30 0RF Rx Instructions: take TWO 150 mg tablets of nirmatrelvir with ONE 100 mg tablet of ritonavir twice daily for 5 days hold buspirone, and trazodone, and then restart them 3 days after finishing the medication prednisone 20 mg tablet 20 mg PO BID Qty: 10 0RF cholecalciferol (vitamin D3) 50 mcg (2,000 unit) tablet 2,000 unit PO DAILY buspirone 10 mg tablet 20 mg PO BID albuterol sulfate 90 mcg/actuation HFA aerosol inhaler 2 inh inhalation Q4-6H PRN trazodone 50 mg tablet 150 mg PO HS PRN cyanocobalamin (vitamin B-12) 500 mcg tablet 500 mcg PO Q2D fexofenadine 180 mg tablet 180 mg PO DAILY Follow Up/Referrals: Francie Sharpe MD [Primary Care Provider] - Stand Alone Forms: [employer] Info Instructions
[2022-08-15] MEDS: ONDANSETRON ODT 4 MG TAB PO (16:31)
[2022-08-15] MEDS: MECLIZINE HCL 25 MG TABLET PO (16:31)
--- OUTSIDE RECORDS SUMMARY | 2022-08-15 17:16 | XMS_ITS | Continuity of Care Document ---
:1965 Author Organization [facility] Address [address] [address] [place] [address] Phone Care Team Providers Name Role Phone Surinder Maher MD Unavailable Unavailable Procedures Procedure Date Init Inpt Cons New/est Mod-hi Ugi Endo; Dx W/wo Collec Specm Advance Directives Directive Yes / No Effective Date File Name No Information Encounters Encounter Practice Location Reason(s) Diagnoses Date Provider Provide rs Description For Visit Copied on Encounter [facility] [place] No [facility] Information 8-201 MD Cadena. [facility], [place] [address] [facility] [address], [facility], [facility] , [place], [address], [id number], [place] [facility], [place], tel:[phone] , [place]. tel:[phone] Init Inpt [facility] [place] No [facility] Referring Cons New/est [facility] Information 7-201 MD Cadena . Provider: [facility], [facility] [address] [facility] [place], [address], [address] [facility] [address], , [place], [address], [place], [id number], [place], [address]. [facility], [place], tel:[phone] tel:[phone] , [place]. tel:[phone] Family History Family Member Type Diagnosis Age At Onset No Information Payers Payer name Insurance type Covered constitution party ID Authorization(s ) [employer] CI [id number] 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 Type Description Quantity Date Captured [...]
--- OUTSIDE RECORDS SUMMARY | 2022-08-15 17:16 | XMS_ITS | Continuity of Care Document ---
:1965 Author Organization [facility] Address [address] [address] [place] [address] Phone Care Team Providers Name Role Phone Surinder Maher MD Unavailable Unavailable Procedures Procedure Date Init Inpt Cons New/est Mod-hi Ugi Endo; Dx W/wo Collec Specm Advance Directives Directive Yes / No Effective Date File Name No Information Encounters Encounter Practice Location Reason(s) Diagnoses Date Provider Provide rs Description For Visit Copied on Encounter [facility] [place] No [facility] Information 8-201 MD Cadena. [facility], [place] [address] [facility] [address], [facility], [facility] , [place], [address], [id number], [place] [facility], [place], tel:[phone] , [place]. tel:[phone] Init Inpt [facility] [place] No [place] Referring Cons New/est [facility] Information 7-201 MD Cadena . Provider: [facility], [facility] [address] [facility] [place], [address], [address] [facility] [address], , [place], [address], [place], [id number], [place], [address] [facility], [place], tel:[phone] tel:[phone] , [place]. tel:[phone] Family History Family Member Type Diagnosis Age At Onset No Information Payers Payer name Insurance type Covered republican ID Authorization(s ) [employer] CI [id number] 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 Type Description Quantity Date Captured [...]
[2022-08-15] MEDS: KETOROLAC 30 MG/ML inj IM (17:22)
== END 2022-08-15 18:03 | disposition home or self-care (01) ==
PROVIDERS: Emergency Provider Emergency Medicine Emergency Medical Services; PCP Family Medicine
DX: R51.9 Headache, unspecified (principal); R42 Dizziness and giddiness
CPT/HCPCS: 96372; 99283; 99284; A9270; J1885

== ENCOUNTER 2022-12-19 07:30 | Outpatient (CLI) | payer OTHER, SELFPAY ==
--- OUTSIDE RECORDS SUMMARY | 2022-12-19 15:08 | XMS_ITS | Continuity of Care Document ---
Author Name Unknown Organization 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, [address] [address], [place], [place], [id number], tel:[phone] [facility] No Information [facility] Cadena. [address] [place] [address], [id number] , [place]. tel:[phone] Init Inpt Cons New/est Mod-hi [facility], [address] [address], [place], [place], [id number], tel:[phone] [facility] No Information Gunnar Cadena. [address] [place] [address], [id number] , [place]. tel:[phone] Referring Provider: Melany Mann MD, [address] [place], [address]. tel:[phone] Family History Family Member Type Diagnosis Age At Onset No Information Payers Payer name Insurance type Covered libertarian ID Authoriza tion(s) [employer] CI [id number] 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 Type Description Quantity Date Captured Comments Sex Female Smoking Status No Information Chief Complaint And Reason For Visit No Information Reason For Referral Reason For Referral No Information History Of Present Illness Encounter Date Complaint History Of Prese nt Illness No Information Functional Status Date Functional Assessmen t No Information Instructions Date Instruction Additional Infor mation No Information Assessments Type Assessment Date No Information Patient Care Teams Name Effective Dates (start - stop) Status Members No Information
--- OUTSIDE RECORDS SUMMARY | 2022-12-19 15:08 | XMS_ITS | Continuity of Care Document ---
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 Name Role Phone Chris RENEE, Luigi Unavailable Unavailable Allergies, Adverse Reactions, Alerts Substance Reaction Status Criticality No Known Allergies Active No Inform ation Medications Medication Instructions Dosage Effective Dates (start - stop) Status Comments Calcium 600 + D(3) 600 mg calcium-200 unit capsule take 1 tablet by oral route every day 1 tablet - Active fexofenadine 180 mg tablet take 1 tablet by oral route every day 180 MG - Active Flintstones with Iron 18 mg iron chewable tablet - Active Vitamin B-12 1,000 mcg tablet take 1 Tablet by Oral route every day 1 Tablet - Active VITAMIN D3 (unknown strength) take 1 Capsule by Oral route every day Not Available - Active escitalopram 20 mg tablet take 1 tablet by oral route every day 20 MG - Active trazodone 50 mg tablet take 1 tablet by oral route 3 times every day after meals 50 MG - Active Procedures Procedure Date Office/Outpatient Visit, New Routine Venipuncture Specimen Handling Rbc Sed Rate, Nonautomated Assay Of Serum Albumin Assay Of Creatinine Transferase (Ast) (Sgot) Alanine Amino (Alt) (Sgpt) CReactive Protein Antinuclear Antibodies CCP Antibody Rheumatoid Factor, IGM Rheumatoid Factor, IGG, IGA Complete Cbc, Automated Results Test Name Date and Time Measure Units Reference Range Abnormal Flag Status Comments Panel Description: CBC no diff - [place] Final WBC 12:55:00 4.4 K/uL 4.0-10.0 Final RBC 12:55:00 4.20 M/uL 3.80-5.80 Final Hemoglobin 12:55:00 13.1 g/dL 11.5-16.0 Final Hematocrit 12:55:00 39.3 % 37.0-47.0 Final MCV 12:55:00 94 fL 80-100 Final MCH 12:55:00 31.3 pg 27.0-32.0 Final MCHC 12:55:00 33.5 g/dL 32.0-36.0 Final RDW 12:55:00 13.1 % 11.0-16.0 Final Platelet Count 12:55:00 232 K/uL 150-500 Final MPV 12:55:00 6.9 fL 6.0-11.0 Final Panel Description: ESR Final ESR 13:09:00 14 mm/hr 0-25 Final Panel Description: CRP Final CRP 13:13:00 0.26 MG/DL 0.00-0.60 Final Panel Description: DMARD Final AST 13:13:00 25 U/L 5-34 Final ALT 13:13:00 23 IU/L 5-35 Final Creatinine 13:13:00 0.620 mg/dL 0.500-1.300 Final ALB 13:13:00 4.0 g/dL 3.5-5.3 Final GFR 13:13:00 107.4 mL/min/1 .73 m2 Final If patient is -[place] an multiply result by 1.210 Panel Description: HEPATITIS B SURFACE ANTIGEN W /REFL CONFIRM Final HEPATITIS B SURFACE ANTIGEN 11:16:00 NON-REACTI VE NON-REACTIVE N Final Panel Description: HEPATITIS C AB W/REFL TO HCV RNA, QN, PCR Final HEPATITIS C ANTIBODY 11:16:00 NON-REACTI VE NON-REACTIVE N Final SIGNAL TO CUT-OFF 11:16:00 0.01 <1.00 N Final HCV antibody was non-reactive. There is no laboratory evidence of HCV infection. In most cases, no further action is required. However,if recent HCV exposure is suspected, a test for HCV RNA(test code 15558) is suggested. For additional information please refer [email or web address] tion.[email or web address]/fa [email or web address](This link is being provided for informational/ educational purposes only.) Panel Description: PHANI Screen Final PHANI SCR A 15:51:00 2.0 U/mL 0.0-10.0 Final PHANI SCR B 15:51:00 2.0 U/mL 0.0-10.0 N Final Panel Description: RF/3 Final RF IgM 17:09:00 6.0 IU/mL 0.0-25.0 Final RF IgA 17:09:00 5.0 Units/mL 0.0-35.0 Final RF IgG 17:09:00 9.0 Units/mL 0.0-20.0 Final Panel Description: CCP Final cCP 14:46:00 0.2 U/mL 0.0-5.0 Final Advance Directives Directive Yes / No Effective Date File Name No Information Encounters Encounter Description Practice Location Reason(s) For Visit Diagnoses Date Provider Providers Copied on Encounter Office/Outpa tient Visit, [facility], [address], [place], [address], [place] tel:[phone] [facility] , Joint Pain (chief complaint) Joint pain multiple sitesObesity 0 Chris Meyers. [facility] [address], [place], [address], [place]. tel:[phone] Referring Provider: Luigi Marshall, [facility] [address], [place], [address]. tel:[phone] [facility], [address], [place], [address], [place] tel:[phone] [facility] , No Information 0 Chris Meyers. [facility] [address], [place], [address], [place]. tel:[phone] Referring Provider: Luigi Marshall, [facility] [address], [place], [address]. tel:[phone] Family History Family Member Type Diagnosis Age At Onset Maternal grandmother Problem rheumatoid arthritis Mother Problem rheumatoid arthritis Payers Payer name Insurance type Covered green party ID Authoriza tion(s) [employer] [id number] 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 Type Description Quantity Date Captured Comments Alcohol Use Details No Caffeine Use Details No Tobacco Use Status Current non-smoker 20 Smoking Status Never smoker Non-Smoking Tobacco Use Details : No Details Available : No Details Available Sex Female Vital Signs Date / Time: Height Weight BMI Pulse Rate Blood Pressure Temperature Respiratory Rate Body Surface Area Head Circumference Head Circ. Percentile Wt./Javier. Percentile BMI percentile Pulse Ox Inhaled Ox 12:02 PM 64.57 in 108.409 kg (239.00 lbs) 40.3 1 kg/m eter (2) 116/80 mm[Hg] 97.40 F Chief Complaint And Reason For Visit From encounter dated '03/14/2020 12:00'. Joint Pain (chief complaint) Reason For Referral Reason For Referral No Information History Of Present Illness Encounter Date Complaint History Of Prese nt Illness Joint Pain Functional Status Date Functional Assessmen t Pain Score 5/10 Instructions Date Instruction Additional Infor mation No Information Assessments Type Assessment Date assessment Joint pain multiple sites assessment Obesity Patient Care Teams Name Effective Dates (start - stop) Status Members No Information
== END 2022-12-19 07:31 | disposition home or self-care (01) ==
LOC: NFLDREF 15:06
PROVIDERS: PCP Family Medicine; Referring Provider Family Medicine; Visit Provider Internal Medicine Nephrology
DX: E16.2 Hypoglycemia, unspecified (principal); N20.9 Urinary calculus, unspecified; D50.9 Iron deficiency anemia, unspecified; E66.01 Morbid (severe) obesity due to excess calories; R53.83 Other fatigue
CPT/HCPCS: 80053; 80061; 80069; 82728; 84550; 87086

== ENCOUNTER 2023-01-19 15:10 | Emergency (ER) | payer OTHER, SELFPAY ==
[2023-01-19 15:13] VITALS: BP 120/89; PULSE 82; RESP 18; TEMP 36.3; O2SAT 97; BMI 46.3
[2023-01-19 15:39] LABS: Appearance Urine Clear (Clear); Bilirubin Urine Negative (Negative); Blood Urine Trace-intact (Negative); Color Urine Yellow (Yellow); Glucose Urine Negative (Negative); Ketones Urine Negative (Negative); Leukocyte Esterase Urine Negative (Negative); Nitrite Urine Negative (Negative); Protein Urine Negative (Negative); Urobilinogen Urine 0.2 (0.2-1.0)
[2023-01-19 16:12] LABS: RBC Urine 0-2 (0-2); WBC Urine 0-2 (0-5)
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
--- NOTE | 2023-01-19 16:45 | CRLHL7_ITS ---
For Patients: As a result of the Century Cures Act, medical imaging exams and procedure reports are released immediately into your electronic medical record. You may view this report before your referring provider. If you have questions, please contact your health care provider. INDICATION: Left flank pain, history of kidney stones. TECHNIQUE: CT abdomen and pelvis without contrast. COMPARISON: November 22, 2021. FINDINGS: Lower chest: Scattered atelectasis. Liver: Normal in size and attenuation. No suspicious masses. Gallbladder and bile ducts: No stones or inflammation. No biliary dilatation. Pancreas: Unremarkable. No mass or inflammation. Spleen: Normal in size. No masses. Adrenal glands: Normal in size. No nodules. Kidneys: Stable left exophytic simple cyst. Few nonobstructing left-sided renal stones. Normal in size. No suspicious masses, or hydronephrosis. GI tract: Gastric bypass. Moderate colonic stool burden normal in caliber. No sign of mass or inflammation. Appendix not definitely seen, however no right lower quadrant inflammatory stranding Vasculature: Abdominal aorta is normal in caliber. Lymph nodes: No lymphadenopathy. Peritoneum/Abdominal Wall: Small fat containing umbilical hernia. No sign of mass or infiltration. No free air or significant free fluid. Pelvis: Mildly distended bladder with circumferential wall thickening. No pelvic masses. Bones: Unremarkable for age. IMPRESSION: Stable nonobstructing stones in the upper pole of the left kidney. No obstructive uropathy. Moderate colonic stool burden. Stable small fat containing umbilical hernia. Please note that all CT scans at this facility use dose modulation, iterative reconstruction, and/or weight-based dosing when appropriate to reduce radiation dose to as low as reasonably achievable. Dictated by Michele Peters MD @ 01/19/2023 6:04:18 PM (Electronically Signed)
[2023-01-19 17:24] LABS: Basophils Absolute Auto 0.04 K/uL (0.00-0.30); Basophils Percent Auto 0.7 % (0.0-3.0); Eosinophils Absolute Auto 0.12 K/uL (0.00-0.50); Hemoglobin* 11.7 gm/dL (12.0-16.0); Lymphocytes Absolute Auto 2.31 K/uL (0.90-2.90); Lymphocytes Percent Auto 38.8 % (20-44); Mean Corpuscular HGB Conc 31 gm/dL (32-36); Mean Corpuscular Hemoglobin 25 pg (26-34); Mean Corpuscular Volume 81 fL (80-100); Monocytes Percent Auto 9.7 % (0.0-11.0); Neutrophils Absolute Auto 2.91 K/uL (1.7-7.0); Neutrophils Percent Auto 48.8 % (42.0-72.0); Platelet Count* 269 K/uL (140-440); RDW Coefficient of Variation % 16.8 % (11.5-15.5); Red Blood Count 4.68 m/uL (4.00-5.20); White Blood Count* 5.96 K/uL (4.50-11.00)
[2023-01-19 17:27] LABS: Slide Review Reflex No
[2023-01-19 17:46] LABS: Albumin* 4.4 g/dL (3.3-5.0); Chloride* 104 mmol/L (96-114); Sodium* 138 mmol/L (135-149)
[2023-01-19 17:47] LABS: Potassium* 4.8 mmol/L (3.6-5.1)
[2023-01-19 17:49] LABS: Alkaline Phosphatase* 105 U/L (40-150); Anion Gap 6 mEq/L (7-15); Aspartate Amino Transferase* 44 U/L (12-35); Bilirubin Total* 0.6 mg/dL (0.1-1.5); Blood Urea Nitrogen* 16 mg/dL (7-30); Carbon Dioxide* 28 mmol/L (20-32); Creatinine* 0.8 mg/dL (0.5-1.5); Est. Creatinine Clearance* 68.61; Estimated Glomerular Filt Rate 87 ml/min; Total Protein* 7.6 g/dL (6.0-8.3)
[2023-01-19 17:50] LABS: Alanine Aminotransferase* 24 U/L (4-35); Glucose* 99 mg/dL (60-115)
[2023-01-19 18:00] LABS: HCG Qualitative Serum* Negative (Negative)
--- NOTE | 2023-01-19 18:34 | ED.NURSE ---
Patient declined IV and medications and MD is OK with lab draw for blood work.
[2023-01-22 20:07] LABS: Calcium* 9.8 mg/dL (8.4-10.6)
== END 2023-01-19 19:08 | disposition home or self-care (01) ==
PROVIDERS: Emergency Provider Emergency Medicine; PCP Family Medicine
DX: R30.0 Dysuria (principal); N95.2 Postmenopausal atrophic vaginitis
CPT/HCPCS: 36415; 74176; 80053; 81001; 84703; 85025; 99283; 99284

== ENCOUNTER 2023-02-19 08:07 | Outpatient (RCR) | payer OTHER, SELFPAY ==
--- NOTE | 2023-02-19 09:48 | PT.OPEX ---
PT [place] [facility] Eval PT [facility] Outpatient Eval Start: 02/19/23 08:35 Freq: Status: Active Protocol: Document 02/19/23 08:36 CRP (Rec: 02/19/23 09:46 CRP [id number]) E-signed By Andrew Mcfadden, PT Physical Therapy Outpatient Evaluation Insurance Information Insurance Name [employer] Medical Diagnosis R ankle sprain Referring MD Dr Alejo Subjective Subjective Pt was mowing the lawn and rolled her R ankle. Did feel and hear a loud pop. Was really hard to put wt on it. Has rolled her ankle before many times. Ankle did swell and had some bruising. This happened a little more over a month ago. Initially did not go to the Dr because she usually bounces back after rolling her but this time it isn't getting better. Pain is constant but varies based on what she has done. Sleep has been very difficult. Pain at the outside of ankle and up the lower leg. Nothing is helping including ibuprofen. Initially in the morning is very stiff and sore. Has past diagnosis of fibromyalgia for years. 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 Pt notes ongoing pain and poor tolerance to functional mobility. Pt demonstrates signs and sxs that suggest ongoing mechanical dysfunction and pain relating to repetitive ankle sprains and foot/ankle instability. Skilled PT is necessary to incorporate ther ex, nm reece, manual therapy, ther act and pt education to decrease pain and improve functional mobility. Primary Functional Limitations Walking Wt bearing activity Plan of Care Rehabilitation Potential Good Physical Therapy Goals 1. Pt will show 100% independence with HEP in 4-6 weeks 2. Pt will walk as desired with a 90% reduction in pain in 10 weeks 3. 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
== END 2023-06-19 23:59 | disposition home or self-care (01) ==
PROVIDERS: PCP Family Medicine; Visit Provider Orthopaedic Surgery
DX: S93.401A Sprain of unspecified ligament of right ankle, initial encounter (principal); Z51.89 Encounter for other specified aftercare
CPT/HCPCS: 97110; 97162

== ENCOUNTER 2023-09-04 08:40 | Outpatient (CLI) | payer OTHER, SELFPAY | END 2023-09-04 08:41 | disposition home or self-care (01) | LOC: NFLDREF 09-07 02:53 | PROVIDERS: PCP Family Medicine; Referring Provider Family Medicine; Visit Provider Family Medicine | DX: D50.9 Iron deficiency anemia, unspecified (principal) | CPT/HCPCS: 82728 ==

== ENCOUNTER 2023-11-24 08:57 | Outpatient (CLI) | payer OTHER, SELFPAY ==
--- OUTSIDE RECORDS SUMMARY | 2023-11-24 08:59 | XMS_ITS | Clinical Summary ---
Author Organization [facility] s & [facility] Address [place], [place] [address] Care Team Providers Care Access Analyst Name Role Phone Francie Sharpe MD Primary Care Provider + Saige Blackman RN Unavailable Romain Doty MD Unavailable Allergies Active Allergy Reactions Criticality Noted Date Comments Codeine Nausea Only Nsaids (Non-Steroidal Anti-Inflammatory Drug) Other - Describe In Comment Field 07/22/2018 H/o judi-n-y gastric bypass. AVOID NSAIDs and aspirin due to risk of gastric and/or G-J anastomotic ulcers. If Ivy must be on short course of NSAIDs or aspirin, use enteric coated if possible and use PPI // Saige Holder RN, Bariatric Nurse Clinician, [facility] Weight Management 07/22/2018 Medications Medication Sig Dispensed Refills Start Date End Date Status traZODone (DESYREL) 50 mg tablet Take 150 mg by mouth at bedtime. Active fexofenadine (CONSTANTINE) 180 mg tablet Take 1 tablet by mouth once daily with a meal. 0 01/27/2018 Active albuterol HFA 90 mcg/actuation inhaler Inhale 1-2 Puffs by mouth every 4 hours if needed. Active calcium citrate-vitamin D3, 315 mg-250 units, (CITRUS CALCIUM) 315-250 mg-unit tab tabletIndications:Ba riatric surgery status Take 1500mg daily in divided doses with meals 90 tablet Active cyanocobalamin (VITAMIN B12) 1,000 mcg sublingual tabletIndications:Ba riatric surgery status DISSOLVE 1 TABLET UNDER THE TONGUE EVERY DAY 30 tablet. 2 01/28/2021 Active busPIRone (BUSPAR) 10 mg tablet 20 mg in the morning and 20 mg in the evening. 11/27/2021 Active PARoxetine (PAXIL) 30 mg tablet 30 mg once daily. 11/27/2021 Activ e Active Problems Problem Noted Date Diagnosed Date Laparoscopic conversion of V BG to judi-en-y gastric bypass, adhesiolysis, partial gastrectomy 07/21/2018 Overview: Dr. Doty Morbid obesity with body mas s index (BMI) of 50.0 to 59.9 in adult 03/04/2018 Epigastric pain 10/27/2016 Morbid obesity 10/27/2016 Heartburn 10/27/2016 Dysphagia 10/27/2016 Renal lesion 10/24/2016 Nausea and vomiting 10/24/2016 Umbilical hernia 10/24/2016 Gastric lesion 10/24/2016 Unspecified essential hypertension 05/27/2005 Migraine, unspecified, witho ut mention of intractable migraine without mention of status migrainosus Depressive disorder, not elsewhere classified Resolved Problems Problem Noted Date Diagnosed Date Resolved Date Abdominal pain 10/24/2016 10/25/2016 S/P bariatric surgery 10/24/20162018 Overview: Gastric sleeve Immunizations Name Administration Dates Next Due Influenza, IIV3 (Age >=3 years) 02/06/2012,02/28,03/15/2010 Influenza, IIV4 06/17/2017, 6,03/15/2015,2014,02/03/2014,02/06/2012,03/15/2009 Pneumococcal Poly,23-Valent (Pneumovax) 06/17/2017 Td (Age >=7 Years) 04/11/2015 Family History [...] Packs/Day Years Used Date Smoking Tobacco: Never Smokeless Tobacco: Never Alcohol Use Standard Drinks/Week Comments Yes 0 (1 standard drink = 0.6 oz pur e alcohol) occ. wine Social Connections Answer Date Recorded Frequency of Communication with Friends and Fami ly Not on file 12/27/2021 Financial Resource Strain Answer Date R ecorded Difficulty of Paying Living Expenses Not on file 06/01/2021 Difficulty of Paying Living Expenses Not on file 06/01/2021 Sex and Gender Information Value Date Recorded Sex Assigned at Not on file Gender Identity Not on file Sexual Orientation Not on file Obstetrics History Last Filed Vital Signs Vital Sign Reading Time Taken Comments Blood Pressure 130/76 12/27/2021 10:34 AM CDT Pulse 60 12/27/2021 10:34 AM CDT Temperature 36.7 ??C (98 ??F) 07/22/2018 4:21 PM HAND MICA PLATE LAYER Respiratory Rate 14 12/27/2021 10:3 4 AM CDT Oxygen Saturation 90% 07/22/2018 4:21 PM HAND MICA PLATE LAYER Inhaled Oxygen Concentration - - Weight 109.7 kg (241 lb 12.8 oz) 2019 11:00 AM HAND MICA PLATE LAYER Height 162.6 cm (5' 4.02) 07/22/2019 1 1:00 AM HAND MICA PLATE LAYER Body Mass Index 41.48 07/22/2019 11:00 AM HAND MICA PLATE LAYER Plan of Treatment Health Maintenance Due Date Last Done Comments Tdap 1978 Depression screening for age 12+ 1979 HIV for age 15-65 1982 Hepatitis C screening for age 18-79 1985 Colonoscopy through age 75 2012 Lipids for age 45-75 2012 07/19/2004 Mammogram for age 45-75 2012 06/16/2005 Pap test for age 21-65 01/26/2017 4, 01/26/2014, 11/21/2010, Additional history exists Zoster (shingles) series for age 50+ (1 of 2) 2017 BMI (ht and wt on same day) for age 18+ 07/22/2020 07/22/2019, 07/22/2019, 01/21/2019, Additional history exists COVID-19 vaccine series (2022- season) 2023 11/12/2021, 05/03/2021, 09/08/2020, Additional history exists Influenza for age 50-64 01/31/2024 06/17/19 18, 03/13/2016, 03/15/2015, Additional history exists Tetanus booster 04/11/2025 04/11/2015 Pneumococcal series for age 6-64 Aged Out 06/17/2017 No longer eligible based on patient's age to complete this topic Procedures Procedure Name Priority Date/Time Associated Diagnosis Comments HPV THIN PREP Timed 01/26/2014 1:52 PM CDT XR MAMMO BILATERAL DIAGNOSTIC ([place]) Routine 06/16/2005 Breast Pain LIPID PANEL Timed 07/19/2004 7:59 AM HAND MICA PLATE LAYER from Last 3 Months or Most Recently Relevant to Health Maintenance Results * HPV THIN PREP (01/26/2014 1:52 PM CDT) SPECIMEN/SOURC E Thin prep [facility] HPV RESULTS High Risk HPV Negative. HPV types 16,18,31, 33,35,39, 45,51,52, 56,58,59, 66 and 68 DNA were undetecta ble or below the pre-set threshold . Methodolo gy: Anne Constance 4800 HPV Test [facility] 01/26/2014 1:52 PM CDT 01/27/2014 1:52 PM CDT Pat Calderon MICROBIOLOGY [facility] [place]NAL ZIP [id number] [place] [address] * XR MAMMO DIAGNOSTIC BILATERAL (06/16/2005) Anatomical Region Laterality Modality BREASTS, Breast Left, Breast Right Bilateral Other Narrative 06/16/2005 DX Bilat Mammo and Left Breast Ultrasound Kim Rocha MD MAMMO * LIPID PANEL (07/19/2004 7:59 AM HAND MICA PLATE LAYER) CHOLESTEROL,TOTAL 166 110 - 199 mg/dL [facility] TRIGLYCERIDES 70 40 - 149 mg/dL [facility] HDL CHOLESTEROL 66 41 - 95 mg/dL ANTHONY CABRERA CHOL/HDL RATIO 2.51 <4.51 GIRISH CABRERA LDL CHOLESTEROL 86 60 - 130 mg/dL ANTHONY CABRERA PATIENT STATUS Fasting GIRISH CABRERA 07/19/2004 7:59 AM HAND MICA PLATE LAYER 07/18/2004 1:56 PM HAND MICA PLATE LAYER Jovana Nicolas NP CHEMISTRY [facility]THON[facility] CABRERA INTERNAL ZIP [address] [address] [facility] [address] from Last 3 Months or Most Recently Relevant to Health Maintenance Advance Directives * Full Code (Latest Code Status on File) Date Activated Date Inactivated Comments 07/21/2018 11:08 AM 07/22/2018 7:22 PM * Full Code Date Activated Date Inactivated Comments 10/27/2016 11:49 AM 10/27/2016 3:16 PM Question Answer Comments Code Status Discussion: Discussed * Full Code Date Activated Date Inactivated Comments 10/25/2016 7:56 PM 10/26/2016 5:06 PM * Full Code Date Activated Date Inactivated Comments 10/24/2016 11:24 PM 10/25/2016 7:56 PM Question Answer Comments Code Status Discussion: Discussed Care Teams Access Analyst Relationship Specialty Start Date End Date Francie Sharpe MD [address] [place] [address] PCP - General Family Practice 03/04/18 Saige Blackman RN [address] [place] [address] [id number] Nurse Clinician 03/09/18 Romain Doty MD [address] [place] [address] [id number] Surgery - General 03/09/18
--- OUTSIDE RECORDS SUMMARY | 2023-11-24 08:59 | XMS_ITS | Continuity of Care Document ---
Author Organization [facility] Address [address] [place] [address] Phone Care Team Providers Care Lumber Tripper Name Role Phone Chris RENEE, Luigi Unavailable [...] suspected, a test for HCV RNA(test code 09362) is suggested. For additional information please refer tohttp://educa tion.[facility]/fa q/TMY13o6(This link is being provided for informational/ educational [...] [address], [place], [address], [place] tel:[phone] [facility] , Joint Pain (chief complaint) Joint pain multiple sitesObesity 0 Chris Meyers. [facility] [address], [place], [address], [place]. tel:[phone] Referring Provider: Luigi Marshall, [facility] [address], [place], [address]. tel:[phone] [facility], [address], [place], [address], [place] tel:[phone] [facility] , No Information 0 Chris Meyers. [facility] [address], [place], [address], [place]. tel:[phone] Referring Provider: Luigi Marshall, [facility] [address], [place], [address]. tel:[phone] Family History Family Member Type Diagnosis Age At Onset Maternal grandmother Problem rheumatoid arthritis Mother Problem rheumatoid arthritis Payers Payer name Insurance type Covered green party ID Authoriza tion(s) Medica CI [id number] 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 Type Description Quantity Date Captured [...]
--- NOTE | 2023-11-24 09:15 | CRLHL7_ITS ---
For Patients: As a result of the Century Cures Act, medical imaging exams and procedure reports are released immediately into your electronic medical record. You may view this report before your referring provider. If you have questions, please contact your health care provider. BILATERAL SCREENING MAMMOGRAM WITH COMPUTER-AIDED DETECTION AND TOMOSYNTHESIS TECHNIQUE: CC and MLO views were obtained. These mammographic images have been obtained using full-field digital technique. These mammographic images were interpreted with the benefit of computer-aided detection. Breast Tomosynthesis was used in this interpretation. COMPARISON FILM: 05/27/22, 01/04/21, 12/30/19. FINDINGS: There are scattered areas of fibroglandular density. IMPRESSION: There is no radiographic evidence for malignancy. ASSESSMENT: BI-RADS Category 1: Negative RECOMMENDATION: Routine screening mammogram in 1 year. A lay language report of this examination will be provided to the patient. Surinder García M.D. Diagnostic Radiologist [email or web address] SP/Dictated by: Surinder García MD @ 11/30/2023 3:07:00 PM (Electronically Signed)
== END 2023-11-24 08:58 | disposition home or self-care (01) ==
LOC: MAMMO 08:57
PROVIDERS: PCP Family Medicine; Visit Provider Family Medicine
DX: Z12.31 Encounter for screening mammogram for malignant neoplasm of breast (principal)
CPT/HCPCS: 77063; 77067

== ENCOUNTER 2024-01-01 14:36 | Outpatient (CLI) | payer OTHER, SELFPAY ==
--- OUTSIDE RECORDS SUMMARY | 2024-01-04 08:30 | XMS_ITS | Clinical Summary ---
Author Organization [facility] Address [place], [place] [address] Care Team Providers Care Trust Vault Clerk Name Role Phone Francie Sharpe MD Primary [...] // Saige Holder RN, Bariatric Nurse Clinician, [facility] Weight Management 07/22/2018 Medications Medication Sig Dispensed [...] 36.7 ??C (98 ??F) 07/22/2018 4:21 PM PORTABLE TRACKMAN Respiratory Rate 14 12/27/2021 10:3 4 AM CDT Oxygen Saturation 90% 07/22/2018 4:21 PM PORTABLE TRACKMAN Inhaled Oxygen Concentration - - Weight 109.7 kg (241 lb 12.8 oz) 2019 11:00 AM PORTABLE TRACKMAN Height 162.6 cm (5' 4.02) 07/22/2019 1 1:00 AM PORTABLE TRACKMAN Body Mass Index 41.48 07/22/2019 11:00 AM PORTABLE TRACKMAN Plan of Treatment Health Maintenance Due Date [...] Pain LIPID PANEL Timed 07/19/2004 7:59 AM PORTABLE TRACKMAN from Last 3 Months or Most Recently Relevant to Health Maintenance Results * HPV THIN PREP (01/26/2014 1:52 PM CDT) SPECIMEN/SOURC E Thin prep [facility] HPV RESULTS High Risk HPV Negative. HPV types 16,18,31, 33,35,39, 45,51,52, 56,58,59, 66 and 68 DNA were undetecta ble or below the pre-set threshold . Methodolo gy: Anne Constance 4800 HPV Test [facility] 01/26/2014 1:52 PM CDT 01/27/2014 1:52 PM CDT Pat Calderon MICROBIOLOGY [facility] INTERNAL ZIP [address] [place] [address] * XR MAMMO DIAGNOSTIC BILATERAL (06/16/2005) Anatomical Region Laterality Modality BREASTS, Breast Left, Breast Right Bilateral Other Narrative 06/16/2005 DX Bilat Mammo and Left Breast Ultrasound Kim Rocha MD MAMMO * LIPID PANEL (07/19/2004 7:59 AM PORTABLE TRACKMAN) CHOLESTEROL,TOTAL 166 110 - 199 mg/dL [facility] TRIGLYCERIDES 70 40 - 149 mg/dL [facility] HDL CHOLESTEROL 66 41 - 95 mg/dL ANTHONY CABRERA CHOL/HDL RATIO 2.51 <4.51 GIRISH CABRERA LDL CHOLESTEROL 86 60 - 130 mg/dL ANTHONY CABRERA PATIENT STATUS Fasting GIRISH CABRERA 07/19/2004 7:59 AM PORTABLE TRACKMAN 07/18/2004 1:56 PM PORTABLE TRACKMAN Jovana Nicolas NP CHEMISTRY ANTHONY CABRERA INTERNAL ZIP [address] [address] [facility] [place] [address] from Last 3 Months or Most Recently [...] Comments Code Status Discussion: Discussed Care Teams Trust Vault Clerk Relationship Specialty Start Date End Date Francie Sharpe MD [address] [place] [address] PCP - General Family Practice 03/04/18 Saige Blackman RN [address] [place] [address] [phone] Nurse Clinician 03/09/18 Romain Doty MD [address] [place] [address] [phone] Surgery - General 03/09/18
--- OUTSIDE RECORDS SUMMARY | 2024-01-04 08:30 | XMS_ITS | Continuity of Care Document ---
Author Organization [facility] Address [address] [place] [address] Phone Care Team Providers Care Miniature Train Driver Name Role Phone Chris RENEE, Luigi Unavailable [...] suspected, a test for HCV RNA(test code 15285) is suggested. For additional information please refer tohttp://educa tion.[employer]/fa q/[email or web address](This link is being provided for informational/ educational [...] [address], [place], [address], [place] tel:[phone] [facility] , Joint Pain (chief complaint) Joint pain multiple sitesObesity 0 Chris Meyers. [facility] [address], [place], [address], [place]. tel:[phone] Referring Provider: Luigi Marshall, [facility] [address], [place], [address]. tel:[phone] [facility], [address], [place], [address], [place] tel:[phone] [facility] , No Information 0 Chris Meyers. [facility] [address], [place], [address], [place]. tel:[phone] Referring Provider: Luigi Marshall, [facility] [address], [place], [address]. tel:[phone] Family History Family Member Type Diagnosis Age At Onset Maternal grandmother Problem rheumatoid arthritis Mother Problem rheumatoid arthritis Payers Payer name Insurance type Covered constitution party ID Authoriza tion(s) Medica CI [id number] 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 Type Description Quantity Date Captured [...]
== END 2024-01-01 14:37 | disposition home or self-care (01) ==
LOC: NFLDREF 01-04 08:27
PROVIDERS: PCP Family Medicine; Referring Provider Family Medicine; Visit Provider Family Medicine
DX: E78.5 Hyperlipidemia, unspecified (principal); M81.0 Age-related osteoporosis without current pathological fracture; E66.01 Morbid (severe) obesity due to excess calories; Z13.9 Encounter for screening, unspecified; Z98.84 Bariatric surgery status
CPT/HCPCS: 80053; 80061; 82306; 82607; 84443

== ENCOUNTER 2024-01-13 07:02 | Outpatient (CLI) | payer OTHER, SELFPAY ==
--- NOTE | 2024-01-13 07:15 | MR_ITS ---
[address] [address] Phone:?[phone] Fax:?[phone] Referring Physician Information: Rodger Fernandez [facility] [address] Phone:?[phone] Fax:?[phone] Patient:Smith Hunter D.O.B:?1965 Sex:?Female Phone:?[phone] [facility] MRN:?[id number] Exam Date:?01/13/2024 EXAM: MRI OF THE RIGHT ANKLE WITHOUT CONTRAST CLINICAL INFORMATION: Female, 58 years old, with right ankle pain. INDICATION: Evaluate for ligament injury. PRIOR SURGERY: None reported. PLAIN FILMS: Ankle radiograph dated 01/05/2024. COMPARISONS: No prior MRIs available. TECHNICAL INFORMATION: Using a 1.5T MR scanner and a localizing surface coil: sagittals: PD, T2, STIR coronals: PD, T2 axials: PD, T2 SEDATION: None. CONTRAST: None. FINDINGS: Osseous structures: No stress/occult fracture or other marrow edema/pathology. A small ganglion cyst is incidentally noted in the calcaneus at the angle of Gissane. Os trigonum: Small os trigonum, with mild reactive osseous changes along the synchondrosis (sagittal STIR series 5 images 14-17). There is mild/moderate surrounding soft tissue edema. Tarsal coalition: No calcaneonavicular, talocalcaneal or cubonavicular coalition. Tibiotalar joint: Effusion: Mild-moderate tibiotalar joint effusion. Ganglion cyst: None. Osteochondral surfaces: Mild chondral thinning and minimal osteophytosis of the tibiotalar joint. Loose bodies: No demonstrable loose bodies. Subtalar joint: Effusion: Mild subtalar joint effusion. Articular cartilage: Mild chondral thinning and osteophytosis, and irregularity of the posterior subtalar joint facet Tarsal joints: Talonavicular: Unremarkable. However, there is a 2.3 x 1.2 x 2.7 cm ganglion cyst arising from the lateral aspect of the joint (axial T2 series 4 image 14 and coronal T2 series 9 image 9). Calcaneocuboid: Unremarkable. Naviculocuneiform: Unremarkable. Tarsometatarsal: Unremarkable. However, there is a 1.7 x 0.8 x 0.8 cm ganglion cyst arising from the dorsal/lateral aspect of the 4th TMT joint (axial T2 series 4 image 25, sagittal STIR series 5 image 8, and coronal T2 series 9 image 1). Ligaments: Syndesmotic ligaments:?The anterior and posterior inferior tibiofibular syndesmotic ligaments are normal. Lateral ligaments:?Moderate attenuation and irregularity anterior talofibular and calcaneal fibular ligaments (axial PD series 3 images 15-20). Deltoid ligament:?The visualized components of the superficial and deep deltoid ligament, specifically the tibiospring and posterior tibiotalar ligaments, are intact, but moderately thickened and irregular in appearance (coronal PD series 8 images 14-18). Calcaneonavicular spring ligament:?The superomedial component of the calcaneonavicular spring ligament is grossly intact. Bifurcate and calcaneocuboid ligaments:?Intact lateral calcaneonavicular and medial calcaneocuboid ligaments. The dorsolateral calcaneocuboid ligament is intact. Tendons: Peroneal:?The peroneal tendons are appropriately situated within the retromalleolar groove and the superior peroneal retinaculum is intact. Normal thickness and signal intensity without tendinopathy, tenosynovitis, or split/tear. Flexor tendons:?Mild posterior tibialis insertional tendinopathy, without tear (axial PD series 3 images 17-20). Flexor hallucis longus and flexor digitorum longus are intact, without tendinopathy or tear. No significant tendinopathy and without tenosynovitis, tendon split or tendon disruption. Extensor tendons:?The anterior tibialis, extensor digitorum longus, and extensor hallucis longus tendons are intact. No significant tendinopathy and without tenosynovitis, tendon split or tendon disruption. Achilles:?Intact, without tendinopathy or tear. No retrocalcaneal or retro- Achilles bursitis. Sinus tarsi:?Moderate soft tissue thickening and edema is present throughout the tarsal sinus (sagittal PD series 6 and sagittal STIR series 5 images 11-14). Plantar aponeurosis: There is no abnormal thickening of, abnormal intrasubstance signal involving, or perifascial edema about the plantar aponeurosis. Specifically, the plantar fascia origin appears normal in signal intensity and morphology. Plantar musculature:?The intrinsic foot musculature is normal in bulk and signal intensity without evidence of denervation atrophy. Neurovascular structures and tarsal tunnel: The posterior tibial neurovascular structures appear unremarkable coursing past the ankle and through the tarsal tunnel. IMPRESSION: 1. Chronic sequela of an intermediate grade sprains of the lateral ligaments and deltoid ligamentous complex, without evidence of an acute injury. 2. 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 3. 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 4. Approximately 2.3 x 1.2 x 2.7 cm ganglion cyst arising from the lateral aspect of the talonavicular joint. There is also a small, slender ganglion cyst arising from the dorsal/lateral aspect of the 4th TMT joint. 5. Mild posterior tibialis tendinopathy, without tear. 6. Findings in keeping with any clinical symptoms of sinus tarsi syndrome. 7. No fracture or osseous stress reaction. BC Electronically signed on 01/13/2024 9:38:00 AM by Surjit Tejada M.D.
== END 2024-01-13 07:03 | disposition home or self-care (01) ==
PROVIDERS: PCP Family Medicine; Visit Provider Physician Assistant Surgical
DX: M25.571 Pain in right ankle and joints of right foot (principal); S93.421A Sprain of deltoid ligament of right ankle, initial encounter; M19.071 Primary osteoarthritis, right ankle and foot; M67.471 Ganglion, right ankle and foot; M25.371 Other instability, right ankle
CPT/HCPCS: 73721

== ENCOUNTER 2024-01-22 18:19 | Outpatient (CLI) | payer OTHER, SELFPAY | END 2024-01-22 18:20 | disposition home or self-care (01) | PROVIDERS: PCP Family Medicine; Visit Provider Family Medicine | DX: R10.9 Unspecified abdominal pain (principal); N20.0 Calculus of kidney; M54.9 Dorsalgia, unspecified | CPT/HCPCS: 80053; 82150; 83690; 85651; 86140 ==

== ENCOUNTER 2024-02-05 07:59 | Outpatient (CLI) | payer OTHER, SELFPAY ==
--- NOTE | 2024-02-05 08:00 | CRLHL7_ITS ---
For Patients: As a result of the Century Cures Act, medical imaging exams and procedure reports are released immediately into your electronic medical record. You may view this report before your referring provider. If you have questions, please contact your health care provider. INDICATION: History of urinary tract calculi. Prior hysterectomy and appendectomy. Prior gastric bypass surgery. TECHNIQUE: Noncontrast CT of the abdomen and pelvis. COMPARISON: January 19, 2023. FINDINGS: Stable nonobstructing left-sided nephrolithiasis. Specifically there is a cluster of 3 punctate nonobstructing stones in the upper left kidney image 79 series 3, a tiny punctate stone in the mid lower left kidney image 74 series 3, and a 3 mm stone in the superior medial left kidney image 81 series 3. These are all entirely unchanged. Stable small exophytic left renal cyst. Mildly generous extrarenal pelvis on the right. No right-sided renal stones. No stones along the course of the ureters or in the urinary bladder. Calcified pelvic phleboliths. Vascular calcification within a normal caliber abdominal aorta and iliac arteries. Postsurgical change from gastric bypass surgery, appendectomy, and hysterectomy. Small fat containing ventral abdominal wall hernia at the level of the umbilicus unchanged. The unenhanced liver, spleen, pancreas, gallbladder, and adrenal glands are within normal limits. No bowel obstruction or ileus. No ascites or lymphadenopathy. The urinary bladder is unremarkable. The included skeleton is within normal limits. Clear included lung bases. IMPRESSION: Stable left-sided nephrolithiasis without hydronephrosis. Please note that all CT scans at this facility use dose modulation, iterative reconstruction, and/or weight-based dosing when appropriate to reduce radiation dose to as low as reasonably achievable. Dictated by Evens Acharya MD @ 02/05/2024 11:04:54 AM (Electronically Signed)
--- OUTSIDE RECORDS SUMMARY | 2024-02-05 08:03 | XMS_ITS | Continuity of Care Document ---
Author Organization [facility] Address [address] [place] [address] Phone Care Team Providers Care Plan Manager Name Role Phone Chris RENEE, Luigi Unavailable [...] Comments Panel Description: CBC no diff - [place] Final WBC 12:55:00 4.4 K/uL 4.0-10.0 Final [...] suspected, a test for HCV RNA(test code 78111) is suggested. For additional information please refer tohttp://educa tion.[employer]/fa q/[email or web address](This link is being provided for informational/ educational [...] [address], [place], [address], [place] tel:[phone] [facility] , Joint Pain (chief complaint) Joint pain multiple sitesObesity 0 Chris Meyers. [facility] [address], [place], [address], [place]. tel:[phone] Referring Provider: Luigi Marshall, [facility] [address], [place], [address]. tel:[phone] [facility], [address], [place], [address], [place] tel:[phone] [facility] , No Information 0 Chris Meyers. [facility] [address], [place], [address], [place]. tel:[phone] Referring Provider: Luigi Marshall, [facility] [address], [place], [address]. tel:[phone] Family History Family Member Type Diagnosis Age At Onset Maternal grandmother Problem rheumatoid arthritis Mother Problem rheumatoid arthritis Payers Payer name Insurance type Covered democrat ID Authoriza tion(s) Medica CI [id number] 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 Type Description Quantity Date Captured [...]
--- OUTSIDE RECORDS SUMMARY | 2024-02-05 08:03 | XMS_ITS | Clinical Summary ---
Author Organization [facility] [employer] [facility] Address [place], [place] [address] Care Team Providers Care Circulation Sales Representative Name Role Phone Francie Sharpe MD Primary [...] // Saige Holder RN, Bariatric Nurse Clinician, [facility] Weight Management 07/22/2018 Medications Medication Sig Dispensed [...] 36.7 ??C (98 ??F) 07/22/2018 4:21 PM ONLINE COMMUNITY MANAGER Respiratory Rate 14 12/27/2021 10:3 4 AM CDT Oxygen Saturation 90% 07/22/2018 4:21 PM ONLINE COMMUNITY MANAGER Inhaled Oxygen Concentration - - Weight 109.7 kg (241 lb 12.8 oz) 2019 11:00 AM ONLINE COMMUNITY MANAGER Height 162.6 cm (5' 4.02) 07/22/2019 1 1:00 AM ONLINE COMMUNITY MANAGER Body Mass Index 41.48 07/22/2019 11:00 AM ONLINE COMMUNITY MANAGER Plan of Treatment Health Maintenance Due Date [...] history exists COVID-19 vaccine series (2022- season) 2024 11/12/2021, 05/03/2021, 09/08/2020, Additional history exists Influenza [...] Pain LIPID PANEL Timed 07/19/2004 7:59 AM ONLINE COMMUNITY MANAGER from Last 3 Months or Most Recently Relevant to Health Maintenance Results * HPV THIN PREP (01/26/2014 1:52 PM CDT) SPECIMEN/SOURC E Thin prep [facility] HPV RESULTS High Risk HPV Negative. HPV types 16,18,31, 33,35,39, 45,51,52, 56,58,59, 66 and 68 DNA were undetecta ble or below the pre-set threshold . Methodolo gy: Anne Constance [id number] [facility] 01/26/2014 1:52 PM CDT 01/27/2014 1:52 PM CDT Pat Calderon MICROBIOLOGY [facility] INTERNAL ZIP [phone] [place] [id number] * XR MAMMO DIAGNOSTIC BILATERAL (06/16/2005) Anatomical Region Laterality Modality BREASTS, Breast Left, Breast Right Bilateral Other Narrative 06/16/2005 DX Bilat Mammo and Left Breast Ultrasound Kim Rocha MD MAMMO * LIPID PANEL (07/19/2004 7:59 AM ONLINE COMMUNITY MANAGER) CHOLESTEROL,TOTAL 166 110 - 199 mg/dL [facility] TRIGLYCERIDES 70 40 - 149 mg/dL [facility] HDL CHOLESTEROL 66 41 - 95 mg/dL ANTHONY CABRERA CHOL/HDL RATIO 2.51 <4.51 GIRISH CABRERA LDL CHOLESTEROL 86 60 - 130 mg/dL ANTHONY CABRERA PATIENT STATUS Fasting GIRISH CABRERA 07/19/2004 7:59 AM ONLINE COMMUNITY MANAGER 07/18/2004 1:56 PM ONLINE COMMUNITY MANAGER Jovana Nicolas NP CHEMISTRY ANTHONY CABRERA INTERNAL ZIP [phone] [place] [address] from Last 3 Months or Most Recently [...] Comments Code Status Discussion: Discussed Care Teams Circulation Sales Representative Relationship Specialty Start Date End Date Francie Sharpe MD [address] [place] [address] PCP - General Family Practice 03/04/18 Saige Blackman RN [address] [place] [address] [phone] Nurse Clinician 03/09/18 Romain Doty MD [address] [place] [address] [phone] Surgery - General 03/09/18
== END 2024-02-05 08:00 | disposition home or self-care (01) ==
LOC: CT 07:59
PROVIDERS: PCP Family Medicine; Visit Provider Internal Medicine Nephrology
DX: N20.0 Calculus of kidney (principal)
CPT/HCPCS: 74176; 80053; 82043; 82570; 87086

== ENCOUNTER 2024-02-08 07:30 | Outpatient (CLI) | payer OTHER, SELFPAY | END 2024-02-08 07:31 | disposition home or self-care (01) | LOC: NFLDREF 02-14 17:06 | PROVIDERS: PCP Family Medicine; Referring Provider Family Medicine; Visit Provider Family Medicine | DX: N20.0 Calculus of kidney (principal); M54.9 Dorsalgia, unspecified; R10.9 Unspecified abdominal pain | CPT/HCPCS: 82340; 82436; 82507; 83735; 83945; 83986; 84105; 84133; 84300; 84392; 84560 ==

== ENCOUNTER 2024-05-20 16:00 | Outpatient (RCR) | payer OTHER, SELFPAY | END 2024-09-17 23:59 | disposition home or self-care (01) | PROVIDERS: PCP Family Medicine; Visit Provider Podiatrist | DX: M25.373 Other instability, unspecified ankle (principal); M25.571 Pain in right ankle and joints of right foot; Z51.89 Encounter for other specified aftercare | CPT/HCPCS: 97110; 97112; 97161 ==

== ENCOUNTER 2025-01-13 13:53 | Outpatient (CLI) | payer OTHER, SELFPAY ==
--- NOTE | 2025-01-13 14:00 | CRLHL7_ITS ---
For Patients: As a result of the Century Cures Act, medical imaging exams and procedure reports are released immediately into your electronic medical record. You may view this report before your referring provider. If you have questions, please contact your health care provider. INDICATION: BILATERAL SCREENING MAMMOGRAM, ASYMPTOMATIC 59 Y/O FEMALE COMPARISON: 11/24/2023, 05/27/2022, 01/04/2021 TECHNIQUE: Digital mammogram in CC and MLO projections including computer-aided detection (CAD) and tomosynthesis. BREAST COMPOSITION: There are scattered areas of fibroglandular density. FINDINGS: No suspicious findings. ASSESSMENT: BI-RADS 1 Negative RECOMMENDATION: Annual screening mammogram. A lay language report of this examination will be provided to the patient. Dictated by: Monserrat Keenan MD @ 01/16/2025 07:29:02 (Electronically Signed)
== END 2025-01-13 13:54 | disposition home or self-care (01) ==
LOC: MAMMO 13:53
PROVIDERS: PCP Family Medicine; Visit Provider Family Medicine
DX: Z12.31 Encounter for screening mammogram for malignant neoplasm of breast (principal)
CPT/HCPCS: 77063; 77067

== ENCOUNTER 2025-01-19 07:30 | Outpatient (CLI) | payer OTHER, SELFPAY | END 2025-01-19 07:31 | disposition home or self-care (01) | LOC: NFLDREF 01-24 11:10 | PROVIDERS: PCP Family Medicine; Referring Provider Family Medicine; Visit Provider Family Medicine | DX: E78.5 Hyperlipidemia, unspecified (principal); D50.0 Iron deficiency anemia secondary to blood loss (chronic); E53.8 Deficiency of other specified B group vitamins; M81.0 Age-related osteoporosis without current pathological fracture; R53.82 Chronic fatigue, unspecified | CPT/HCPCS: 80053; 80061; 82306; 82607; 82728 ==